=== PATIENT | female | born 1940 | race Caucasian/White ===

== ENCOUNTER 2016-06-05 19:21 | Inpatient (IN) | payer OTHER, MEDICARE ==
[~2016-06-05] VITALS: Ht 162.6 cm; Wt 76.7 kg
--- NOTE | 2016-06-05 19:33 | ED AMS/SEIZURE/WEAK/DIZZY ---
History of Present Illness General Chief Complaint: Dizziness Stated Complaint: BIBA, DIZZINESS, NAUSEA Source: patient, family, EMS Exam Limitations: clinical condition Vital Signs & Intake/Output Vital Signs & Intake/Output Vital Signs Date Time Temp Pulse Resp B/P B/P Pulse O2 O2 Flow FiO2 Mean Ox Delivery Rate 06/06 0039 96.8 60 18 169/75 92 Room Air 06/05 2259 96.9 58 18 194/79 95 Room Air 06/05 1934 97.5 61 18 128/58 94 Room Air ED Intake and Output 06/06 0000 06/05 1200 Intake Total 1000 Output Total Balance 1000 Intake, IV 1000 Patient 200 lb Weight Weight Estimated Measurement Method Allergies Coded Allergies: amoxicillin (PT UNSURE 06/05/16) Reconcile Medications Acetaminophen With Codeine (Acetaminophen-Cod #3 Tablet) 300 MG-30 MG TABLET 300 MG PO DAILY PAIN (Reported) Allopurinol 100 MG TABLET 100 MG PO DAILY GOUT (Reported) Amlodipine Besylate 10 MG TABLET 10 MG PO DAILY HEART (Reported) Aspirin (Francois Chewable Aspirin) 81 MG TAB.CHEW 81 MG PO DAILY HEART ( Reported) Carvedilol 12.5 MG TABLET 12.5 MG PO DAILY HEART (Reported) Clopidogrel Bisulfate (Clopidogrel) 75 MG TABLET 75 MG PO DAILY ANTIPLATELET (Reported) Fluoxetine HCl 20 MG CAPSULE 20 MG PO DAILY MENTAL HEALTH (Reported) Gabapentin 100 MG CAPSULE 100 MG PO DAILY DIABETES (Reported) Ipratropium/Albuterol Sulfate (Iprat-Albut 0.5-3(2.5) MG/3 Ml) 0.5 MG-3 MG (2.5 MG BASE)/3 ML AMPUL.NEB 0.5 MG INH PRN PRN BREATHING (Reported) Levothyroxine Sodium 112 MCG TABLET 112 MCG PO DAILY HYPOTHYROID (Reported) Mag Oxide/D3/Turmeric Rt Xt (Magnesium-Vit D3-Turmeric Cap) 500 MG-3,000 UNIT- 150 MG CAPSULE 500 MG PO DAILY SUPPLEMENT (Reported) Omeprazole 20 MG CAPSULE.DR 20 MG PO DAILY GERD (Reported) Pantoprazole Sodium 40 MG TABLET.DR 40 MG PO DAILY GERD (Reported) Pravastatin Sodium 40 MG TABLET 40 MG PO DAILY CHOLESTEROL (Reported) Saccharomyces Boulardii (Florastor) 250 MG CAPSULE 250 MG PO DAILY At The PoolS Shut Down (Reported) Sennosides (Senna) 8.6 MG TABLET 8.6 MG PO PRN CONSPTIPATION (Reported) Triage Nurses Notes Reviewed? yes Onset: Abrupt Duration: hour(s): (FEW) Timing: multiple episodes today Injury Environment: home Severity: moderate No Modifying Factors: none Associated Symptoms: ABDOMINAL PAIN, NASUEA, VOMITING HPI: This is a 75-year-old female with history of CVA, chronic kidney disease who presents by EMS with chief complaint of sudden onset of nausea vomiting diarrhea at home 2 hours ago. According to the daughter and son she had chicken for lunch and dinner. Nobody else in the house has been sick recently. Suddenly she became ill and had multiple rounds of diarrhea and vomiting. Patient and family deny any blood in the stools or in the vomitus. She denies any chest pain or feeling short of breath. She does have a pacemaker. All of her doctors are. [facility] but she patient did not want to go back to [facility]. Past History Travel History Traveled to [facility] past 21 day No Medical History Any Pertinent Medical History? see below for history Cardiovascular: CHF, PPM Renal: CKD Endocrine: diabetes Surgical History Surgical History: non-contributory Psychosocial History Tobacco Use: Never used ETOH Use: denies use Illicit Drug Use: denies illicit drug use Family History Hx Contributory? No Review of Systems Review of Systems Constitutional: Denies: chills, fever. EENTM: Reports: no symptoms. Respiratory: Denies: cough, short of breath. Cardiovascular: Denies: chest pain. GI: Reports: abdominal pain, diarrhea, nausea, vomiting. Genitourinary: Reports: no symptoms. Musculoskeletal: Reports: no symptoms. Skin: Reports: no symptoms. Neurological/Psychological: Reports: no symptoms. Hematologic/Endocrine: Denies: bruising, bleeding, polyuria, polydipsia. Immunologic/Allergic: Denies: splenectomy. All Other Systems: Reviewed and Negative Physical Exam Physical Exam General Appearance: well developed/nourished, alert, awake, anxious, mild distress, LEFT FACIAL DROOP Head: atraumatic, active bleeding Eyes: Bilateral: normal appearance, PERRL, pale conjunctivae. Ears, Nose, Throat: normal pharynx, hearing grossly normal Neck: normal inspection, supple, full range of motion Respiratory: normal breath sounds, chest non-tender, no respiratory distress Cardiovascular: regular rate/rhythm Peripheral Pulses: 2+ radial (R), 2+ radial (L) Gastrointestinal: soft, tenderness (LEFT FLANK, LLQ), NO REBOUND OR GUARDING Extremities: LEFT SIDED WEAKNESS Neurologic/Psych: awake, alert, oriented x 3 Skin: intact, normal color, warm/dry Core Measures ACS in differential dx? No CVA/TIA Diagnosis: No Severe Sepsis Present: No Septic Shock Present: No Progress Differential Diagnosis: dehydration, electrolyte imbalance, UTI/pyelo, GASTROENTERITIS, FOOD POISONING, DEHYDRATION, ACUTE KIDNEY INJURY,CHOLELITHIASIS RENAL COLIC Plan of Care: Orders Procedure Date/time Status Nothing by Mouth 06/06 B Active Patient Data 06/06 0024 Active Admit to inpatient 06/05 2325 Active Vital Signs 06/05 2325 Active Code Status 06/05 2325 Active Norris, Insertion/Removal/Asses 06/05 2241 Active CULTURE,URINE 06/05 2241 Active Straight Cath 06/05 2141 Active Intake & Output 06/05 2134 Active BLOOD CULTURE 06/05 2030 Active LACTIC ACID 06/05 2002 Complete URINALYSIS 06/05 1941 Complete TROPONIN LEVEL 06/05 1941 Complete LIPASE 06/05 1941 Complete COMPREHENSIVE METABOLIC PANEL 06/05 1941 Complete CBC WITHOUT DIFFERENTIAL 06/05 1941 Complete EKG 06/05 1941 Active Laboratory Tests 06/05/16 2303: Lactic Acid Cancelled 06/05/168: Urinalysis MOD H, Urine Color YEL, Urine Clarity CLEAR, Urine pH 7.0, Ur Specific [place] 1.020, Urine Protein >=300 H, Urine Ketones NEG, Urine Nitrite NEG, Urine Bilirubin NEG, Urine Urobilinogen 0.2, Ur Leukocyte Esterase NEG, Ur Microscopic SEDIMENT EXAMINED, Urine RBC 1-3, Urine WBC 5-10 H, Ur Epithelial Cells FEW, Micro UA Comment [place] H, Urine Hemoglobin TRACE-INTACT, Urine Glucose NEG 06/05/162010: Lactic Acid 0.6 L 06/05/162010: Anion Gap 12, Estimated GFR 31 L, BUN/Creatinine Ratio 22.5, Glucose 150 H, Calcium 9.6, Total Bilirubin 0.5, AST 20, ALT 23, Alkaline Phosphatase 79, Troponin I < 0.01, Total Protein 6.7, Albumin 3.6, Globulin 3.1, Albumin/ Globulin Ratio 1.2, Lipase 107, CBC w Diff NO MAN DIFF REQ, RBC 3.12 L, MCV 83.3, MCH 27.6, RDW 18.2 H, MPV 7.2 L, Gran % 79.5 H, Lymphocytes % 11.0 L, Monocytes % 2.8, Eosinophils % 6.3 H, Basophils % 0.4, Absolute Granulocytes 8.4 H, Absolute Lymphocytes 1.2, Absolute Monocytes 0.3, Absolute Eosinophils 0.7, Absolute Basophils 0, PUBS MCHC 33.1 Microbiology 06/05 2257 URINE ROUT: Urine Culture - RECD 06/05 2052 BLOOD: Blood Culture - RECD 06/06 1999 BLOOD: Blood Culture - RECD Diagnostic Imaging: Viewed by Me: CT Scan. Discussed w/RAD: CT Scan. Radiology Impression: PATIENT: SERENA AGUILERA PRESENT AGE: 75 PATIENT ACCOUNT NO: [id number] : 38 LOCATION: [facility] ORDERING PHYSICIAN: LANDEN MARTINEZ MD SERVICE DATE: 06/05/16 EXAM TYPE: CAT - CT ABD & PELVIS W/O IV CONTRAS EXAMINATION: CT ABDOMEN AND PELVIS WITHOUT CONTRAST CLINICAL INFORMATION: Pain, diarrhea, vomiting COMPARISON: None TECHNIQUE: Multidetector volumetric imaging was performed from the superior aspect of the liver through the pubic symphysis. Sagittal and coronal reformatted images were obtained on the technologist's workstation. DLP: 796 mGy-cm FINDINGS: Mild atelectasis or scarring at the bases. Upper abdomen There is mixed attenuation in the gallbladder. This may represent gallstones. Blood or other complex fluid would be a consideration. 2 calcifications in the region of the head of the pancreas. I cannot exclude common duct calculi. Largest is measuring 4 mm. The spleen is within normal limits. The adrenal glands are within normal limits. The pancreas shows no evidence for lesion. No free fluid is seen here. There is no adenopathy in the upper abdomen. The bowel pattern is felt to be within normal limits. The aorta is calcified but nondilated. Kidneys appear lobulated. This is a noncontrast study. Cannot exclude underlying lesion here. Bulbous appearance in the left d. Recommend ultrasound. I cannot exclude some mild hydronephrosis on the left in the left ureter is dilated. In the pelvis left ureter may lead up to a very small calculus at the level of the UVJ. Measures 2 mm. No free fluid in the deep pelvis. The sigmoid shows diverticulosis but no convincing evidence for diverticulitis. There is no bulky adenopathy here. IMPRESSION: Several subtle findings here. Mixed attenuation in the gallbladder and findings in the head of the pancreas which may suggest common duct stones. Correlation recommended clinically. Recommend ultrasound to further evaluate. MRCP may also be useful Prominent left ureter which may be lead up to a very small 2 mm calculus at the UVJ. There is also some mild fullness of left collecting system and pyelonephritis cannot be excluded and would be in the differential here. Bulbous appearance to the mid to inferior aspect of left kidney. Ultrasound would be recommended to exclude mass. The bowel pattern is nonobstructive. No free fluid. Diverticulosis but no evidence for diverticulitis here. DICTATED BY: LEILANI DAVIDSON MD DATE/TIME DICTATED:06/05/162109 CURING ROOM SUPERVISOR:KRISTAN DATE/TIME TRANSCRIBED:06/05/162109 CONFIDENTIAL, DO NOT COPY WITHOUT APPROPRIATE AUTHORIZATION. <Electronically signed in Other Vendor System> SIGNED BY: LEILANI DAVIDSON MD 06/05/162123 Initial ED EKG: ATRIAL PACED RHYTHM Departure Departure Time of Disposition: 2306 Disposition: STILL A PATIENT Condition: Stable Clinical Impression Primary Impression: Abdominal pain Secondary Impressions: Chronic anemia, CKD (chronic kidney disease), Nausea and vomiting Departure Forms: Customer Survey General Discharge Information Admission Note Spoke With: ENZO OVALLES MDWhitney Documentation of Exam: Documentation of any treatments & extenuating circumstances including Concerns Regarding Discharge (functional status, medication knowledge or non-compliance, living conditions, etc.) that warrant an admission rather than observation: [IV FLUIDS, ANTIEMETICS, IV PAIN CONTROL, UROLOGY CONSULTATION, F/U CULTURES, RUQ ULTRASOUND ]
--- NOTE | 2016-06-05 19:34 | NUR ---
PT BIBA FROM HOME. PT C/O DIZZINESS AND NAUSEA. 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 BEGAN TO HAVE DIARRHEA AND VOMIT X1 HOUR. C/O DIZZINESS AND FEELING COLD.
--- NOTE | 2016-06-05 19:40 | NUR ---
AT BEDSIDE FOR PT EVALUATION
--- NOTE | 2016-06-05 19:51 | NUR ---
PT CHANGED INTO GOWN, EKG IN PROGRESS BY JULISSA HODGE
--- NOTE | 2016-06-05 20:00 | NUR ---
IV EST #20 IN RAC BLOOD OBTAINED AND SENT TO LAB -CULTURES X2, SST,BLUE,LAV,AQUINO
[2016-06-05 20:26] LABS: ABSOLUTE BASOPHIL COUNT 0 /CUMM (0.0-0.2); ABSOLUTE EOSINOPHIL COUNT 0.7 /CUMM (0.0-0.7); ABSOLUTE GRANULOCYTE CT 8.4 /CUMM (1.4-6.5); ABSOLUTE LYMPH COUNT 1.2 /CUMM (1.2-3.4); ABSOLUTE MONOCYTE COUNT 0.3 /CUMM (0.10-0.60); BASOPHIL % 0.4 % (0.0-2.0); EOSINOPHIL % 6.3 % (0-5); GRANULOCYTE % 79.5 % (42.2-75.2); MEAN CORPUSCULAR HGB 27.6 PG (27.0-31.0); MEAN CORPUSCULAR HGB CONC 33.1 G/DL (33.0-37.0); MEAN CORPUSCULAR VOLUME 83.3 FL (81.0-99.0); MEAN PLATELET VOLUME 7.2 FL (7.4-10.4); PLATELET COUNT 307 /CUMM (130-400); RBC DISTRIBUTION WIDTH 18.2 % (11.5-14.5); RED BLOOD CELL CT 3.12 /CUMM (4.20-5.40); WHITE BLOOD CELL COUNT 10.5 /CUMM (4.8-10.8)
--- NOTE | 2016-06-05 21:04 | NUR ---
PT TO AND FROM CAT SCAN VIA STRETCHER
--- NOTE | 2016-06-05 21:24 | CT SCAN REPORT ---
EXAMINATION: CT ABDOMEN AND PELVIS WITHOUT CONTRAST CLINICAL INFORMATION: Pain, diarrhea, vomiting COMPARISON: None TECHNIQUE: Multidetector volumetric imaging was performed from the superior aspect of the liver through the pubic symphysis. Sagittal and coronal reformatted images were obtained on the technologist's workstation. DLP: 796 mGy-cm FINDINGS: Mild atelectasis or scarring at the bases. Upper abdomen There is mixed attenuation in the gallbladder. This may represent gallstones. Blood or other complex fluid would be a consideration. 2 calcifications in the region of the head of the pancreas. I cannot exclude common duct calculi. Largest is measuring 4 mm. The spleen is within normal limits. The adrenal glands are within normal limits. The pancreas shows no evidence for lesion. No free fluid is seen here. There is no adenopathy in the upper abdomen. The bowel pattern is felt to be within normal limits. The aorta is calcified but nondilated. Kidneys appear lobulated. This is a noncontrast study. Cannot exclude underlying lesion here. Bulbous appearance in the left d. Recommend ultrasound. I cannot exclude some mild hydronephrosis on the left in the left ureter is dilated. In the pelvis left ureter may lead up to a very small calculus at the level of the UVJ. Measures 2 mm. No free fluid in the deep pelvis. The sigmoid shows diverticulosis but no convincing evidence for diverticulitis. There is no bulky adenopathy here. IMPRESSION: Several subtle findings here. Mixed attenuation in the gallbladder and findings in the head of the pancreas which may suggest common duct stones. Correlation recommended clinically. Recommend ultrasound to further evaluate. MRCP may also be useful Prominent left ureter which may be lead up to a very small 2 mm calculus at the UVJ. There is also some mild fullness of left collecting system and pyelonephritis cannot be excluded and would be in the differential here. Bulbous appearance to the mid to inferior aspect of left kidney. Ultrasound would be recommended to exclude mass. The bowel pattern is nonobstructive. No free fluid. Diverticulosis but no evidence for diverticulitis here.
[2016-06-05] MEDS ORDERED: PANTOPRAZOLE SO40 M1 PO (21:36)
[2016-06-05] MEDS ORDERED: ALLOPURINOL100 M1 PO (21:37)
[2016-06-05] MEDS ORDERED: LEVOTHYROXINE112 MCG PO (21:38)
[2016-06-05] MEDS ORDERED: AMLODIPINE BESY10 M1 PO (21:38)
[2016-06-05] MEDS ORDERED: PRAVASTATIN SOD40 M2 PO (21:38)
[2016-06-05] MEDS ORDERED: GABAPENTIN100 M2 PO (21:39)
[2016-06-05] MEDS ORDERED: CARVEDILOL12.5 M1 PO (21:39)
[2016-06-05] MEDS ORDERED: CLOPIDOGREL75 M1 PO (21:40)
[2016-06-05] MEDS ORDERED: OMEPRAZOLE20 M2 PO (21:40)
[2016-06-05] MEDS ORDERED: FLUOXETINE HCL20 M2 PO (21:40)
[2016-06-05] MEDS ORDERED: ACETAMINOPHEN-1 EAC3 PO (21:42)
[2016-06-05] MEDS ORDERED: IPRAT-ALBUT 0.5-3 ML INH (21:46)
[2016-06-05] MEDS ORDERED: MAGNESIUM-VIT1 EACH PO (21:46)
[2016-06-05] MEDS ORDERED: SENNA8.6 M3 PO (21:47)
[2016-06-05] MEDS ORDERED: FLORASTOR250 M1 PO (21:47)
[2016-06-05] MEDS ORDERED: BAYER CHEWABLE81 MG PO (21:47)
--- NOTE | 2016-06-05 21:53 | NUR ---
PT AND PT FAMILY ADVISED AND EDUCATED ABOUT NEED FOR URINE SAMPLE. PT FAMILY STATED THAT THEY WILL REMIND PT ABOUT NEED FOR SAMPLE. MADE AWARE
--- NOTE | 2016-06-05 22:58 | NUR ---
URINE TRIO SENT TO LAB.
--- NOTE | 2016-06-05 23:01 | NUR ---
PT MEDICATED WITH 10MG REGLAN FOR NAUSEA RECIO CATHETER PLACED, 400ML OF CLEAR YELLOW URINE IN BAG. URINE TRIO OBTAINED AND SENT TO LAB BY JULISSA HODGE
--- NOTE | 2016-06-05 23:22 | NUR ---
ASSUMED CARE OF PT PER VERONA BEE. PT RESTING IN RM WITH RR, WILL CONTINUE TO MONITOR
--- NOTE | 2016-06-05 23:48 | NUR ---
PT VOMITING IN , THIS RN MADE DR CORTÉS AWARE.
--- NOTE | 2016-06-05 23:55 | NUR ---
PT MEDICATED WITH 12.5MG PHENERGEN IV PER EMAR INFUSING OVER 30MINS.
--- NOTE | 2016-06-06 00:04 | NUR ---
PT REPOSITIONED IN BED SITTING STRAIGHT UP BY THIS RN SO PT CAN VOMIT IF NEEDED.
--- NOTE | 2016-06-06 01:27 | NUR ---
PT SLEEPING WITH RR, PT PLACED ON MONITOR IN RM, THIS RN WILL CONTINUE TO MONITOR
--- NOTE | 2016-06-06 01:55 | History & Physical ---
JEFFERY VERDIN 06/06/16 0154: General Information and HPI MD Statement: I have seen and personally examined SERENA AGUILERA and documented this H&P. The patient is a 75 year old F who presented with a patient stated chief complaint of [NAUSEA/VOMITING/DIARRHEA]. Source of Information: patient Exam Limitations: unable to give history, not alert/orientated, poor historian History of Present Illness: Mrs. Aguilera is a 75 year old female with significant past medical history of diabetes, hypertension, hyperlipidemia, chronic kidney disease [follows up with Dr. 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 It should be noted that information was obtained from her son as the patient was unable to provide a significant detailed history. Per her son, the patient's nausea, vomiting and diarrhea started approximately 3:30 PM, and continued until the time they came to the hospital. He states that she had been eating chicken, which they attributed the symptoms to, however upon further investigation it turns out that the whole family had eaten the same food and did not develop any symptoms. Per the son, he states that the patient did not complain of any other symptoms, but he did mention that when the patient first came to the emergency department she did have left sided abdominal discomfort when he ED provider examined her. A detailed review of systems could not be conducted. She does live at home with her along with a 24-hour live-in nurse. She does have an allergy to penicillin, 40 years ago, not sure reaction. Vitals on admission, temperature 97.5, heart rate 61, respiratory rate 18, 128/ 58, 84% on room air. Physical exam: Age-appropriate appearing female lying comfortably in bed in no acute distress. HEENT exam positive for dry/pale mucous membranes. Lung exam benign. Heart exam regular rate and rhythm without any murmurs rubs or gallops. Abdominal exam bowel sounds however patient did admit to tenderness diffusely. Lower extremity exam negative for any swelling or significant erythema. Significant labs, H&H 8.6/26, white blood cell count 10.5, platelets 307. BUNs/ creatinine 36/1.6, blood sugar 150. Urinalysis showed 1+ proteinuria with 5-[address] showed several subtle findings including mixed attenuation in the gallbladder and findings in the head of the pancreas which may suggest common duct stones, as well as a prominent left ureter which may be lead up to a very small 2 mm calculus at the UVJ. There is also some mild fullness of left collecting system. Allergies/Medications Allergies: Coded Allergies: amoxicillin (PT UNSURE 06/05/16) Home Med list Acetaminophen With Codeine (Acetaminophen-Cod #3 Tablet) 300 MG-30 MG TABLET 300 MG PO DAILY PAIN (Reported) Allopurinol 100 MG TABLET 100 MG PO DAILY GOUT (Reported) Amlodipine Besylate 10 MG TABLET 10 MG PO DAILY HEART (Reported) Aspirin (Francois Chewable Aspirin) 81 MG TAB.CHEW 81 MG PO DAILY HEART ( Reported) Carvedilol 12.5 MG TABLET 12.5 MG PO BID BLOOD PRESSURE (Reported) Clopidogrel Bisulfate (Clopidogrel) 75 MG TABLET 75 MG PO DAILY ANTIPLATELET (Reported) Fluoxetine HCl 20 MG CAPSULE 20 MG PO DAILY MENTAL HEALTH (Reported) Gabapentin 100 MG CAPSULE 100 MG PO DAILY DIABETES (Reported) Ipratropium/Albuterol Sulfate (Iprat-Albut 0.5-3(2.5) MG/3 Ml) 0.5 MG-3 MG (2.5 MG BASE)/3 ML AMPUL.NEB 0.5 MG INH PRN PRN BREATHING (Reported) Levothyroxine Sodium 112 MCG TABLET 112 MCG PO DAILY HYPOTHYROID (Reported) Mag Oxide/D3/Turmeric Rt Xt (Magnesium-Vit D3-Turmeric Cap) 500 MG-3,000 UNIT- 150 MG CAPSULE 500 MG PO DAILY SUPPLEMENT (Reported) Omeprazole 20 MG CAPSULE.DR 20 MG PO DAILY GERD (Reported) Pantoprazole Sodium 40 MG TABLET.DR 40 MG PO DAILY GERD (Reported) Pravastatin Sodium 40 MG TABLET 40 MG PO DAILY CHOLESTEROL (Reported) Saccharomyces Boulardii (Florastor) 250 MG CAPSULE 250 MG PO DAILY Loud Games (Reported) Sennosides (Senna) 8.6 MG TABLET 8.6 MG PO PRN CONSPTIPATION (Reported) Compliance With Home Meds: GOOD Past History Travel History Traveled to [place] past 21 day No Medical History Cardiovascular: symptomatic bradycardia s/p PPM Renal: CKD Endocrine: diabetes Surgical History Surgical History: non-contributory Past Family/Social History Family History Relations & Conditions if any Relation not specified for: *No pertinent family history Psychosocial History ETOH Use: denies use Illicit Drug Use: denies illicit drug use Review of Systems Review of Systems Constitutional: Reports: see HPI. Cardiovascular: Denies: chest pain, edema, orthopena, palpitations. Respiratory: Denies: cough, hemoptysis, orthopnea, short of breath. GI: Reports: abdominal pain, diarrhea, nausea, vomiting. Denies: bloating, constipation, bloody stool, changes in stool. Exam & Diagnostic Data Last 24 Hrs of Vital Signs/I&O Vital Signs Date Time Temp Pulse Resp B/P B/P Pulse O2 O2 Flow FiO2 Mean Ox Delivery Rate 06/06 0039 96.8 60 18 169/75 92 Room Air 06/05 2259 96.9 58 18 194/79 95 Room Air 06/05 1934 97.5 61 18 128/58 94 Room Air Intake & Output 06/06 0800 06/06 0000 06/05 1600 Intake Total 1000 Output Total Balance 1000 Intake, IV 1000 Patient 90.718 kg Weight Weight Estimated Measurement Method Physical Exam General Appearance Alert (see ), not oriented Skin Temp/Moisture Exam: Warm/Dry HEENT Atraumatic, dry/pale membranes Neck Supple, No JVD Cardiovascular Regular Rate, Normal S1, Normal S2, No Murmurs Lungs Clear to Auscultation, Normal Air Movement Abdomen Normal Bowel Sounds, Soft, diffuse tenderness Extremities No Cyanosis, No Edema, No Tenderness/Swelling Last 24 Hrs of Labs/Yony: Laboratory Tests 06/05/162302: Lactic Acid Cancelled 06/05/162257: Urinalysis MOD H, Urine Color YEL, Urine Clarity CLEAR, Urine pH 7.0, Ur Specific [place] 1.020, Urine Protein >=300 H, Urine Ketones NEG, Urine Nitrite NEG, Urine Bilirubin NEG, Urine Urobilinogen 0.2, Ur Leukocyte Esterase NEG, Ur Microscopic SEDIMENT EXAMINED, Urine RBC 1-3, Urine WBC 5-10 H, Ur Epithelial Cells FEW, Micro UA Comment [place] YEAST H, Urine Hemoglobin TRACE-INTACT, Urine Glucose NEG 06/05/162010: Lactic Acid 0.6 L 06/05/162010: Anion Gap 12, Estimated GFR 31 L, BUN/Creatinine Ratio 22.5, Glucose 150 H, Calcium 9.6, Total Bilirubin 0.5, AST 20, ALT 23, Alkaline Phosphatase 79, Troponin I < 0.01, Total Protein 6.7, Albumin 3.6, Globulin 3.1, Albumin/ Globulin Ratio 1.2, Lipase 107, CBC w Diff NO MAN DIFF REQ, RBC 3.12 L, MCV 83.3, MCH 27.6, RDW 18.2 H, MPV 7.2 L, Gran % 79.5 H, Lymphocytes % 11.0 L, Monocytes % 2.8, Eosinophils % 6.3 H, Basophils % 0.4, Absolute Granulocytes 8.4 H, Absolute Lymphocytes 1.2, Absolute Monocytes 0.3, Absolute Eosinophils 0.7, Absolute Basophils 0, PUBS MCHC 33.1 Microbiology 06/05 2257 URINE ROUT: Urine Culture - RECD 06/05 2052 BLOOD: Blood Culture - RECD 06/06 1999 BLOOD: Blood Culture - RECD Diagnostic Data Other Results SERVICE DATE: 06/05/16-2031 EXAM TYPE: CAT - CT ABD & PELVIS W/O IV CONTRAS EXAMINATION: CT ABDOMEN AND PELVIS WITHOUT CONTRAST CLINICAL INFORMATION: Pain, diarrhea, vomiting COMPARISON: None TECHNIQUE: Multidetector volumetric imaging was performed from the superior aspect of the liver through the pubic symphysis. Sagittal and coronal reformatted images were obtained on the technologist's workstation. DLP: 796 mGy-cm FINDINGS: Mild atelectasis or scarring at the bases. Upper abdomen There is mixed attenuation in the gallbladder. This may represent gallstones. Blood or other complex fluid would be a consideration. 2 calcifications in the region of the head of the pancreas. I cannot exclude common duct calculi. Largest is measuring 4 mm. The spleen is within normal limits. The adrenal glands are within normal limits. The pancreas shows no evidence for lesion. No free fluid is seen here. There is no adenopathy in the upper abdomen. The bowel pattern is felt to be within normal limits. The aorta is calcified but nondilated. Kidneys appear lobulated. This is a noncontrast study. Cannot exclude underlying lesion here. Bulbous appearance in the left d. Recommend ultrasound. I cannot exclude some mild hydronephrosis on the left in the left ureter is dilated. In the pelvis left ureter may lead up to a very small calculus at the level of the UVJ. Measures 2 mm. No free fluid in the deep pelvis. The sigmoid shows diverticulosis but no convincing evidence for diverticulitis. There is no bulky adenopathy here. IMPRESSION: Several subtle findings here. Mixed attenuation in the gallbladder and findings in the head of the pancreas which may suggest common duct stones. Correlation recommended clinically. Recommend ultrasound to further evaluate. MRCP may also be useful Prominent left ureter which may be lead up to a very small 2 mm calculus at the UVJ. There is also some mild fullness of left collecting system and pyelonephritis cannot be excluded and would be in the differential here. Bulbous appearance to the mid to inferior aspect of left kidney. Ultrasound would be recommended to exclude mass. The bowel pattern is nonobstructive. No free fluid. Diverticulosis but no evidence for diverticulitis here. Assessment/Plan Assessment: Mrs. Aguilera is a 75 year old female with significant past medical history of diabetes, hypertension, hyperlipidemia, chronic kidney disease [follows up with Dr. 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 Significant labs, H&H 8.6/26, white blood cell count 10.5, platelets 307. BUNs/ creatinine 36/1.6, blood sugar 150. Urinalysis showed 1+ proteinuria with 5-[address] showed several subtle findings including mixed attenuation in the gallbladder and findings in the head of the pancreas which may suggest common duct stones, as well as a prominent left ureter which may be lead up to a very small 2 mm calculus at the UVJ. There is also some mild fullness of left collecting system. Problem List/Assessment and Plan Nausea/vomitting/diarrhea * Admit the patient to for rehydration with IV fluids and anti-emetics * We'll give normal saline at 75 mL per hour 2 bags and 4 mg of IV Zofran every 4-6 hours as needed * Reassess volume status in the morning and consider transitioning to by mouth Zofran * The patient's family did eat the same food as the patient so that goes against gastroenteritis, however the patient is diabetic and therefore immunocompromised. Also given the acuity of the process, she may indeed have gastroenteritis secondary to an infectious process. * Nausea, vomiting and abdominal pain associated with diarrhea may be secondary to a biliary process however her liver enzymes were within normal limits. CT scan did show questionable gallstones, if the patient does not improve tomorrow, consider abdominal ultrasound. Consider complete abdominal ultrasound also assess her kidneys in addition to her biliary tree and liver. * Please also consider pancultures and and ABx to cover gram negatives and anaerobes if she spikes a fever/doesnt improve. HTN/CVA * continue home meds, carvedilol 12.5 mg twice a day, amlodipine 10mg daily, aspirin 81 mg, clopidogrel 75 mg, and pravastatin 40 daily. DM * Patient is not on any antidiabetic medication however we will place her on a NovoLog sliding scale and check fingersticks 3 times a day before meals and at bedtime CKD * BUNs/creatinine 36/1.6. We do not have a baseline BUN/creatinine however we will recheck BUN/creatinine after hydration tomorrow. Per the son the patient does have chronic kidney disease with approximately 25% renal function. Hypothyroidism * Continue synthroid 112 mcg daily. DNR/DNI heart healthy diet heparin for dvt ppx pain pathway As Ranked By This Provider Problem List: 1. Nausea and vomiting 2. CKD (chronic kidney disease) 3. Abdominal pain 4. Chronic anemia Core Measures/Miscellaneous Acute Coronary Syndrome ACS Diagnosis: No Cerebrovascular Accident CVA/TIA Diagnosis: No Congestive Heart Failure CHF Diagnosis: No Venous Thromboembolism VTE Risk Factors: Acute medical illness, Age > 40 [facility] prophylaxis d/t: No contraindications No VTE Pharm Prophylaxis d/t: No contraindications VTE Diagnosis: No VTE Type: NONE VTE Confirmed by (Test): NONE Severe Sepsis Severe Sepsis Present: No Septic Shock Septic Shock Present: No Miscellaneous Documentation Attending Case Discussed With: ENZO OVALLES MDWhitney Primary Care Physician: FLOR[place] MEMBRENO MD Patient sees these Specialists Dr. Mina Level of Patient Care: General Medicine ENZO OVALLES MD 06/06/16 0419: Attending Review Statement Attending Statement Attending Statement: examined this patient, discuss w/resident/PA/BAR ROLLER, agreed w/resident/PA/BAR ROLLER Attending Assessment/Plan: 75 yo morbidly obese F with h/o CVA with left sided residual deficit, facial droop and speech deficit, CKD, DM, HTN, chronic anemia, CHF, recurrent UTI, sinus bradycardia s/p PPM, is brought in for sudden onset nausea, vomiting and noonbloody diarrhea after having consumed chicken, which other members in the family ate but did not get sick. History as obtained from patient's son. Patient had reported some mid-to-left abdominal discomfort to ER physician. On our evaluation, patient was unable to pin point abdominal pain. Patient mainly follows at [facility]. VSS. Exam: AAO, dry mucous membranes, pallor+. Lungs clear. Abd soft, not distended, diffuse tenderness, BS+. Mccurdy's sign negative Back: no CVA tenderness. Labs: H/H 8.6/26 (no baseline), BUN 36, creat 1.6 (no baseline), trop neg. LFTs normal, lipase normal. UA proteinuria, WBC 5-10, otherwise clear. EKG: atrial paced. CT abd/pelvis: Possible gallstones, CBD stones noted around head of pancreas. Prominent left ureter with 2 mm calculus, mild fullness of left collecting system, cannot exclude pyelonephritis. Nonobstructive bowel gas pattern. 1. Intractable nausea, vomiting and diarrhea likely 2/2 acute viral or bacterial gastroenteritis. No evidence of bowel obstruction. Cholelithiasis/ biliary colic is a possibility, no evidence of cholangitis, pancreatitis or cholecystitis. GM admit, NPO, IV fluids, anti-emetics, obtain RUQ ultrasound in AM. Obtain swallow eval in AM. If she spikes a fever or develops leukocytosis, will consider empiric antibiotic coverage for GI organisms. If diarrhea persists, consider stool studies, Cdiff. CT shows evidence of mild fullness in left collecting system ?pyelonephritis, however urinalysis is clear and patient has no urinary symptoms. Not convinced that this is a UTI or pyelonephritis. 2. Renal failure acute vs. Chronic. IV hydration and recheck renal functions in AM. 3. Anemia of chronic disease. Guaiac all stools, check iron studies, TSH, B12, folic acid. Obtain records from [facility]. DVT ppx Hep SC. DNR/I. folic acid. Obtain records from [facility]. DVT ppx Hep SC. DNR/I.
--- NOTE | 2016-06-06 02:36 | NUR ---
PT HAS NS INFUSING @ 75ML/HR PER EMAR, PT RESTING WITH RR, WILL CONTINUE TO MONITOR
--- NOTE | 2016-06-06 03:46 | NUR ---
PT SLEEPING WITH RR, HR NML ON MONITOR, WILL CONTINUE TO MONITOR. PT HAS NOT HAD ANY FURTHER EPISODES OF EMESIS
--- NOTE | 2016-06-06 04:53 | NUR ---
PT SLEEPING WITH RR, BILATERAL CHEST RISE AND FALL NOTED. WILL CONTINUE TO MONITOR
--- NOTE | 2016-06-06 05:22 | Admission Certification ---
Admission Certification Certification Statement - As attending physician, I certify that at the time of - admission, based on clinical presentation, severity of - symptoms, need for further diagnostic testing and - therapeutic interventions, and risk of adverse outcomes - without in-hospital treatment, in my clinical assessment, - this patient requires an acute hospital stay for a minimum - of two nights or longer. I have also considered psychsocial - factors such as support system, advanced age, financial - issues, cognitive issues, and failed out-patient treatments, - past re-admission history, safety of patient, and lack of - compliance as applicable. Specific rationale supporting this admission is: Intractable nausea and vomiting.
--- NOTE | 2016-06-06 05:54 | NUR ---
PT AWAKE, PT STATES NO LONGER FEELING NAUSEOUS AND PT INFORMED BREAKFAST WILL BE HERE SOON.
--- NOTE | 2016-06-06 06:27 | NUR ---
PT MEDICATED WITH 5000UNIT HEPARIN BOLUS IN RIGHT ABD PER EMAR.
--- NOTE | 2016-06-06 06:34 | NUR ---
PT MEDICATED WITH 20MG PRILOSEC PO AND 0.112MG SYNTHROID PO PER EMAR.
--- NOTE | 2016-06-06 07:56 | PN- Housestaff ---
NATASHA UP 06/06/16 0756: Subjective Follow-up For: Nausea vomiting and diarrhea Complaints: tiredness Subjective: Patient was seen and examined this morning. She was lying comfortably on bed but admits to have weakness and she feels somewhat tired. She denied any loose bowel movement or nausea or vomiting past few hours. She had 3 diarrheal stools overnight. She is nothing by mouth for pending swallow evaluation. She remained afebrile with temperature 96.6, pulse 61, respiratory rate 18, blood pressure 172/72 and she is saturating 95% on room air. WBC count is normal at 10.5 and her hemoglobin is 8.6 with hematocrit of 26 and platelet count of 307. She denied severe abdominal pain but admits that she has some discomfort on the right upper quadrant. She also admits that sometimes she has mild burning micturition. Review of Systems Constitutional: Reports: weakness. Denies: chills, diaphoresis. EENTM: Denies: blurred vision, double vision. Cardiovascular: Denies: chest pain, edema, orthopena. Respiratory: Denies: cough, hemoptysis. Gastrointestinal: Reports: abdominal pain, distention. Genitourinary: Reports: dysuria. Denies: frequency, hematuria. Objective Last 24 Hrs of Vital Signs/I&O Vital Signs Date Time Temp Pulse Resp B/P B/P Pulse O2 O2 Flow FiO2 Mean Ox Delivery Rate 06/06 0627 96.6 61 18 172/72 95 Room Air 06/06 0039 96.8 60 18 169/75 92 Room Air 06/05 2259 96.9 58 18 194/79 95 Room Air 06/05 1934 97.5 61 18 128/58 94 Room Air Intake & Output 06/06 1600 06/06 0800 06/06 0000 Intake Total 1000 Output Total 700 Balance -700 1000 Intake, IV 1000 Output, Urine 700 Patient 200 lb Weight Weight Estimated Measurement Method Physical Exam General Appearance: Alert, Oriented X3, Cooperative, No Acute Distress Skin: No Significant Lesion Cardiovascular: Normal S1, Normal S2, No Murmurs Lungs: Normal Air Movement Abdomen: Soft, slight right upper quadrant tenderness Neurological: left-sided residual upper and lower extremity weakness after CVA Extremities: trace edema Current Medications: Current Medications Sig/Lakshmi Start time Last Medication Dose Route Stop Time Status Admin Acetaminophen 650 MG Q6P PRN 06/06 0200 AC PO Acetaminophen 1,000 MG Q6P PRN 06/06 0200 AC IV Amlodipine Besylate 10 MG DAILY 06/06 1000 AC PO Aspirin 81 MG DAILY 06/06 1000 AC PO Carvedilol 12.5 MG BID 06/06 1000 AC PO Clopidogrel Bisulfate 75 MG DAILY 06/06 1000 AC PO Fluoxetine HCl 20 MG DAILY 06/06 1000 AC PO Gabapentin 100 MG DAILY 06/06 1000 AC PO Heparin Sodium 5,000 UNIT Q8 06/06 0600 AC 06/06 (Porcine) SC 0627 Insulin Aspart 0 TIDAC 06/06 0800 AC SC Levothyroxine Sodium 0.112 MG DAILY AC 06/06 0700 AC 06/06 PO 0634 Magnesium Oxide 400 MG DAILY 06/06 1000 AC PO Metoclopramide HCl 0 .STK-MED ONE 06/05 2246 DC .ROUTE Metoclopramide HCl 10 MG ONCE ONE 06/05 2244 DC 06/05 IV 06/05 2245 230 Morphine Sulfate 2 MG ONCE ONE 06/05 2044 DC 06/05 IV 06/05 Morphine Sulfate 0 .STK-MED ONE 06/05 2038 DC .ROUTE Omeprazole 20 MG DAILY AC 06/06 0700 AC 06/06 PO 0634 Ondansetron HCl 4 MG Q6P PRN 06/06 0200 AC IV Ondansetron HCl 0 .STK-MED ONE 06/05 2038 DC .ROUTE Ondansetron HCl 4 MG ONCE ONE 06/06 1999 DC 06/05 IV 06/05 2000 204 Oxycodone/ 1 TAB Q6P PRN 06/06 0200 AC Acetaminophen PO Pravastatin Sodium 40 MG 1700 06/06 1700 AC PO Promethazine HCl 0 .STK-MED ONE 06/05 2352 DC .ROUTE Promethazine HCl 12.5 MG ONCE ONE 06/05 2345 DC 06/05 IV 06/05 2345 2355 Senna/Docusate Sodium 2 TAB DAILY NEEDED PRN 06/06 0145 AC PO Sodium Chloride 1,000 ML Q13H 06/06 0200 AC 06/06 IV 06/07 0359 0235 Sodium Chloride 500 ML BOLUS ONE 06/05 1945 DC 06/05 IV 06/06 2043 204 Last 24 Hrs of Lab/Yony Results Last 24 Hrs of Labs/Mics: Laboratory Tests 06/05/162302: Lactic Acid Cancelled 06/05/162257: Urinalysis MOD H, Urine Color YEL, Urine Clarity CLEAR, Urine pH 7.0, Ur Specific Wallace 1.020, Urine Protein >=300 H, Urine Ketones NEG, Urine Nitrite NEG, Urine Bilirubin NEG, Urine Urobilinogen 0.2, Ur Leukocyte Esterase NEG, Ur Microscopic SEDIMENT EXAMINED, Urine RBC 1-3, Urine WBC 5-10 H, Ur Epithelial Cells FEW, Micro UA Comment BUDDING YEAST H, Urine Hemoglobin TRACE-INTACT, Urine Glucose NEG 06/05/162010: Lactic Acid 0.6 L 06/05/162010: Anion Gap 12, Estimated GFR 31 L, BUN/Creatinine Ratio 22.5, Glucose 150 H, Calcium 9.6, Iron 50, Total Bilirubin 0.5, AST 20, ALT 23, Alkaline Phosphatase 79, Troponin I < 0.01, Total Protein 6.7, Albumin 3.6, Globulin 3.1, Albumin/ Globulin Ratio 1.2, Lipase 107, Vitamin B12 418, Folate 9.4, TSH 0.599, CBC w Diff NO MAN DIFF REQ, RBC 3.12 L, MCV 83.3, MCH 27.6, RDW 18.2 H, MPV 7.2 L, Gran % 79.5 H, Lymphocytes % 11.0 L, Monocytes % 2.8, Eosinophils % 6.3 H, Basophils % 0.4, Absolute Granulocytes 8.4 H, Absolute Lymphocytes 1.2, Absolute Monocytes 0.3, Absolute Eosinophils 0.7, Absolute Basophils 0, PUBS MCHC 33.1 Microbiology 06/05 2257 URINE ROUT: Urine Culture - RES 06/05 2052 BLOOD: Blood Culture - RECD 06/06 1999 BLOOD: Blood Culture - RECD Assessment/Plan Assessment: Mrs. Snowden is a 75 year old female with significant past medical history of diabetes, hypertension, hyperlipidemia, chronic kidney disease [follows up with Dr. 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 Significant labs, H&H 8.08/05, white blood cell count 10.5, platelets 307. BUNs/ creatinine 36/1.6, blood sugar 150. Urinalysis showed 1+ proteinuria with 5-[address] showed several subtle findings including mixed attenuation in the gallbladder and findings in the head of the pancreas which may suggest common duct stones, as well as a prominent left ureter which may be lead up to a very small 2 mm calculus at the UVJ. There is also some mild fullness of left collecting system. Problem List/Assessment and Plan Nausea/vomitting/diarrhea * Admit the patient to for rehydration with IV fluids and anti-emetics * We'll continue normal saline at 75 mL per hour 2 bags and 4 mg of IV Zofran every 4-6 hours as needed * Nausea, vomiting and abdominal pain associated with diarrhea most likely gastro-enteritis viral in origin but may be secondary to a biliary process however her liver enzymes were within normal limits. CT scan did show questionable gallstones, we will do right upper quadrant abdominal ultrasound to look for biliary tract pathology and also for any evidence of pyelonephritis/ nephrolithiasis * On abdominal ultrasound today a large lobulated 5.0 into 2.18-4.1 cm mixed echogenicity but primarily hyperechoic Mac was seen that was arising from posterior wall of gallbladder. Which was highly suspicious for malignancy/ neoplasm. GI consultation was requested and also patient and family was updated * If patient spikes fever or develop leukocytosis at any point we will cover her with antibiotics for gastroenterology and we will consider sending C. difficile if diarrhea persists * HTN/CVA * continue home meds, carvedilol 12.5 mg twice a day, amlodipine 10mg daily, aspirin 81 mg, clopidogrel 75 mg, and pravastatin 40 daily. DM * Patient is not on any antidiabetic medication however we will place her on a NovoLog sliding scale and check fingersticks 3 times a day before meals and at bedtime CKD * BUNs/creatinine 36/1.6. We do not have a baseline BUN/creatinine however we will recheck BUN/creatinine after hydration tomorrow. Per the son the patient does have chronic kidney disease with approximately 25% renal function. * I called her PCP Dr. Jose MEMBRENO ask about patient's previous creatinine and he told me that the last BEP from May showed that her creatinine was 2.2, BUNs 34, GFR 23. Her hemoglobin A1c was 6.2. Patient had a recent ultrasound that was especially for kidney/neurogenic bladder and gallbladder sludge was noted. Hypothyroidism * Continue synthroid 112 mcg daily. DNR/DNI heart healthy diet heparin for dvt ppx pain pathway Problem List: 1. Abdominal pain 2. Nausea and vomiting 3. Chronic anemia Pain Ratin Pain Location: Right upper quadrant Pain Goal: Remain pain free Pain Plan: Tylenol Tomorrow's Labs & Rationales: CBC and basic electrolyte panel NAN BENITEZ MD 06/06/16 1228: Attending MD Review Statement Attending Statement Attending MD Statement: examined this patient, discuss w/resident/PA/[employer]ANT OPERATOR, agreed w/resident/PA/[employer]ANT OPERATOR, reviewed EMR data (avail), discussed with nursing, reviewed images, amended to note Attending Assessment/Plan: Patient seen and examined, slightly better this morning. The nausea, vomiting and diarrhea has improved. Patient had an abdominal ultrasound done and the results are pending. Vital Signs Date Time Temp Pulse Resp B/P B/P Pulse O2 O2 Flow FiO2 Mean Ox Delivery Rate 06/06 1025 97.0 72 19 168/70 95 Room Air 06/06 0921 61 138/56 06/06 0920 61 138/56 06/06 0800 61 138/56 06/06 0627 96.6 61 18 172/72 95 Room Air 06/06 0039 96.8 60 18 169/75 92 Room Air 06/05 2259 96.9 58 18 194/79 95 Room Air 06/05 1934 97.5 61 18 128/58 94 Room Air on exam; awake, nad. cv; s1,s2, rrr resp; clear b/l abd; soft, nt, bs+ ext; trace edema. Laboratory Tests 06/06 06/05 06/05 1218 2303 2258 Chemistry Sodium Pending Potassium Pending Chloride Pending Carbon Dioxide Pending Anion Gap Pending BUN Pending Creatinine Pending BUN/Creatinine Ratio Pending Lactic Acid Cancelled Urines Urinalysis MOD H Urine Color (YEL,AMB,STR) YEL Urine Clarity (CLEAR) CLEAR Urine pH (5.0 - 8.0) 7.0 Ur Specific Wallace (1.001 - 1.035) 1.020 Urine Protein (NEG,<30 MG/DL) >=300 H Urine Ketones (NEG) NEG Urine Nitrite (NEG) NEG Urine Bilirubin (NEG) NEG Urine Urobilinogen (0.1 - 1.0 EU/dl) 0.2 Ur Leukocyte Esterase (NEG) NEG Ur Microscopic SEDIMENT EXAMINED Urine RBC (0 - 5 /HPF) 1-3 Urine WBC (0 - 2 /HPF) 5-10 H Ur Epithelial Cells (NONE,FEW) FEW Micro UA Comment BUDDING YEAST H Urine Hemoglobin (NEG) TRACE-INTACT Urine Glucose (N MG/DL) NEG 06/05 Chemistry Sodium (137 - 145 mmol/L) 136 L Potassium (3.5 - 5.1 mmol/L) 5.1 Chloride (98 - 107 mmol/L) 100 Carbon Dioxide (22 - 30 mmol/L) 25 Anion Gap (5 - 16) 12 BUN (7 - 17 mg/dL) 36 H Creatinine (0.5 - 1.0 mg/dL) 1.6 H Estimated GFR (>60 ml/min) 31 L BUN/Creatinine Ratio (7 - 25 %) 22.5 Glucose (65 - 99 mg/dL) 150 H Lactic Acid (0.7 - 2.1 mmol/L) 0.6 L Calcium (8.4 - 10.2 mg/dL) 9.6 Iron (37 - 170 ug/dL) 50 Ferritin (11.1 - 264 ng/mL) 20.0 Total Bilirubin (0.2 - 1.3 mg/dL) 0.5 AST (14 - 36 U/L) 20 ALT (9 - 52 U/L) 23 Alkaline Phosphatase (<127 U/L) 79 Troponin I (< 0.11 ng/ml) < 0.01 Total Protein (6.3 - 8.2 g/dL) 6.7 Albumin (3.5 - 5.0 g/dL) 3.6 Globulin (1.9 - 4.2 gm/dL) 3.1 Albumin/Globulin Ratio (1.1 - 2.2 %) 1.2 Lipase (23 - 300 U/L) 107 Vitamin B12 (239 - 931 pg/mL) 418 Folate (2.76 - 20.0 ng/mL) 9.4 TSH (0.270 - 4.200 uIU/mL) 0.599 Hematology CBC w Diff NO MAN DIFF REQ WBC (4.8 - 10.8 /CUMM) 10.5 RBC (4.20 - 5.40 /CUMM) 3.12 L Hgb (12.0 - 16.0 G/DL) 8.6 L Hct (37 - 47 %) 26.0 L MCV (81.0 - 99.0 FL) 83.3 MCH (27.0 - 31.0 PG) 27.6 RDW (11.5 - 14.5 %) 18.2 H Plt Count (130 - 400 /CUMM) 307 MPV (7.4 - 10.4 FL) 7.2 L Gran % (42.2 - 75.2 %) 79.5 H Lymphocytes % (20.5 - 51.1 %) 11.0 L Monocytes % (1.7 - 9.3 %) 2.8 Eosinophils % (0 - 5 %) 6.3 H Basophils % (0.0 - 2.0 %) 0.4 Absolute Granulocytes (1.4 - 6.5 /CUMM) 8.4 H Absolute Lymphocytes (1.2 - 3.4 /CUMM) 1.2 Absolute Monocytes (0.10 - 0.60 /CUMM) 0.3 Absolute Eosinophils (0.0 - 0.7 /CUMM) 0.7 Absolute Basophils (0.0 - 0.2 /CUMM) 0 PUBS MCHC (33.0 - 37.0 G/DL) 33.1 A/P: 75 y/o F with pmh sig for diabetes, hypertension, hyperlipidemia, chronic kidney disease [follows up with Dr. Haja Mina nephrology], multiple recurrent UTI/pyelonephritis, CVA in 2013, and again in 2016 with residual left-sided weakness, and sinus bradycardia status post pacemaker placement, admitted with nausea/vomiting and diarrhea which seems to be improving. CT sacn report is not clrear about ? pancreatic head mass therefore abdominal ultrasound was ordered. Official results are not back yet but as reported to Dr. Up by doctor Caroline, there is a suspicion for gallbladder mass. Will follow up on official report. Ideally patient should have an MRI done of the abdomen. Repeat creatinine from this morning is pending. Patient did have acute renal failure with creatinine of 1.6 as of yesterday. We will follow-up on repeat creatinine after she has received IV hydration. She has been started on diet after she passed her swallow evaluation. Please consult GI. Continue other current medications are If creatinine improving and patient able to tolerate diet, will consider stopping the IV fluids. DVT prophylaxis: Heparin subcutaneous.
[2016-06-06 08:00] VITALS: BP 138/56
--- NOTE | 2016-06-06 12:23 | NUR ---
1200 LAB DRAWN AND SENT BY THIS [facility]
--- NOTE | 2016-06-06 12:54 | ULTRASOUND REPORT ---
EXAMINATION: US ABDOMEN COMPLETE CLINICAL INFORMATION: Nausea, vomiting, diarrhea. Presumptive diagnosis gastroenteritis. COMPARISON: CT scan of the abdomen and pelvis dated 06/05/2016. TECHNIQUE: Real-time imaging of the abdominal viscera. FINDINGS: PANCREAS: The pancreatic body and head and portions of the tail were visualized and are unremarkable. Remainder of the pancreas is obscured by overlying bowel gas. ABDOMINAL AORTA: The proximal segment is normal in caliber. INFERIOR VENA CAVA: Visualized portions are normal. LIVER: The liver is enlarged, with the right lobe measuring at least 19 cm on ultrasound. On recent CT scan, liver length of 20.5 cm was obtained. The liver demonstrates normal contour and echogenicity. No focal lesion or intrahepatic biliary duct dilatation. GALLBLADDER: Corresponding to the CT scan findings, there is a large lobulated 5.0 x 2.8 x 4.1 cm mixed echogenicity but primarily hyperechoic mass seen arising from the posterior wall of the gallbladder body, demonstrating prominent internal vascular flow with color Doppler imaging. This is highly suspicious for a gallbladder wall neoplasm. In addition, there is echogenic shadowing layering debris seen within the gallbladder, likely representing multiple tiny gallstones/gravel. No gallbladder wall thickening, pericholecystic fluid or sonographic Mccurdy sign is elicited. COMMON BILE DUCT: Normal in caliber measuring 0.5 cm in diameter. RIGHT KIDNEY: Normal. No hydronephrosis. No renal calculi or focal parenchymal lesions. The kidney measures 9.5 cm in maximum dimension. LEFT KIDNEY: Normal. No hydronephrosis. No renal calculi or focal parenchymal lesions. The appearance on CT scan is most likely related to prominent lobulations of the renal cortex. The kidney measures 9.3 cm in maximum dimension. SPLEEN: Normal. The spleen measures 9.7 cm in maximum dimension. FREE FLUID: None. IMPRESSION: 1. Large mildly vascular solid mass in the gallbladder body, arising from the posterior wall, highly suspicious for a malignant neoplasm. By ultrasound, no definite extra cholecystic extension or involvement of the liver is seen, though evaluation is limited in this regard. No definite adenopathy is appreciated in the silas hepatis. Consider further assessment with MRI scan with and without contrast/MRCP. 2. Calcified tiny gallstones/gravel are also seen within the gallbladder. No evidence of acute cholecystitis or biliary obstruction. 3. Hepatomegaly. 4. The mild left ureteral hydronephrosis seen on CT scan is not reproduced on this exam and appears to have resolved. 5. No focal left renal mass seen. Appearance on CT scan is most likely related to prominent lobulations of the renal cortex. Findings discussed with Dr. Monique Aranda 06/06/2016, 12:35 PM.
--- NOTE | 2016-06-06 13:08 | Cons- Gastroenterology ---
General Information and HPI Consulting Request Date of Consult: 06/06/16 Requested By: CHARLETTE HOOKER,ANGE Reason for Consult: Abdoinal pain, nausea and vomiting; abnormal US and ct scan showing a GB mass. Source of Information: patient, old records Exam Limitations: dementia, poor historian History of Present Illness: Ms. Snowden is a 75 year old female with multiple medical problems who presented to [facility] last night with reports of abdominal pain, nausea and vomiting and loose stool. The patient is a poor historian and most of the history is obtained from the chart. According to the patients son yesterday after having some chicken for lunch she developed some bilious vomiting and some loose stool. There were no reports of any hematemesis and the diarrhea was not bloody. There were also some reports of some left sided abdominal discomort. In the ER she was given IVF, reglan and phenergan with some improvement in her GI symptoms. She had subsequent imaging which revealed a gallbladder mass concerning for a malignancy for which a GI consult was called. Since coming to the ER she has been hemodynamically stable and has not had any further vomiting or diarrhea. She is also not currently complaining of any abdominal pain. Allergies/Medications Allergies: Coded Allergies: amoxicillin (PT UNSURE 06/05/16) Home Med List: Acetaminophen With Codeine (Acetaminophen-Cod #3 Tablet) 300 MG-30 MG TABLET 300 MG PO DAILY PAIN (Reported) Allopurinol 100 MG TABLET 100 MG PO DAILY GOUT (Reported) Amlodipine Besylate 10 MG TABLET 10 MG PO DAILY HEART (Reported) Aspirin (Francois Chewable Aspirin) 81 MG TAB.CHEW 81 MG PO DAILY HEART ( Reported) Carvedilol 12.5 MG TABLET 12.5 MG PO BID BLOOD PRESSURE (Reported) Clopidogrel Bisulfate (Clopidogrel) 75 MG TABLET 75 MG PO DAILY ANTIPLATELET (Reported) Fluoxetine HCl 20 MG CAPSULE 20 MG PO DAILY MENTAL HEALTH (Reported) Gabapentin 100 MG CAPSULE 100 MG PO DAILY DIABETES (Reported) Ipratropium/Albuterol Sulfate (Iprat-Albut 0.5-3(2.5) MG/3 Ml) 0.5 MG-3 MG (2.5 MG BASE)/3 ML AMPUL.NEB 0.5 MG INH PRN PRN BREATHING (Reported) Levothyroxine Sodium 112 MCG TABLET 112 MCG PO DAILY HYPOTHYROID (Reported) Mag Oxide/D3/Turmeric Rt Xt (Magnesium-Vit D3-Turmeric Cap) 500 MG-3,000 UNIT- 150 MG CAPSULE 500 MG PO DAILY SUPPLEMENT (Reported) Omeprazole 20 MG CAPSULE.DR 20 MG PO DAILY GERD (Reported) Pantoprazole Sodium 40 MG TABLET.DR 40 MG PO DAILY GERD (Reported) Pravastatin Sodium 40 MG TABLET 40 MG PO DAILY CHOLESTEROL (Reported) Saccharomyces Boulardii (Florastor) 250 MG CAPSULE 250 MG PO DAILY [employer]Trails (Reported) Sennosides (Senna) 8.6 MG TABLET 8.6 MG PO PRN CONSPTIPATION (Reported) Current Medications: Current Medications Sig/Lakshmi Start time Last Medication Dose Route Stop Time Status Admin Acetaminophen 650 MG Q6P PRN 06/06 0200 AC PO Acetaminophen 1,000 MG Q6P PRN 06/06 0200 AC IV Amlodipine Besylate 10 MG DAILY 06/06 1000 AC 06/06 PO 0921 Aspirin 81 MG DAILY 06/06 1000 AC 06/06 PO 0920 Carvedilol 12.5 MG BID 06/06 1000 AC 06/06 PO 0920 Clopidogrel Bisulfate 75 MG DAILY 06/06 1000 AC 06/06 PO 0921 Fluoxetine HCl 20 MG DAILY 06/06 1000 AC 06/06 PO 0921 Gabapentin 100 MG DAILY 06/06 1000 AC 06/06 PO 0921 Heparin Sodium 5,000 UNIT Q8 06/06 0600 AC 06/06 (Porcine) SC 0627 Insulin Aspart 0 TIDAC 06/06 0800 AC SC Levothyroxine Sodium 0.112 MG DAILY AC 06/06 0700 AC 06/06 PO 0634 Magnesium Oxide 400 MG DAILY 06/06 1000 AC 06/06 PO 0920 Metoclopramide HCl 0 .STK-MED ONE 06/05 2246 DC .ROUTE Metoclopramide HCl 10 MG ONCE ONE 06/05 2244 DC 06/05 IV 06/05 Morphine Sulfate 2 MG ONCE ONE 06/05 2044 DC 06/05 IV 06/05 Morphine Sulfate 0 .STK-MED ONE 06/05 2038 DC .ROUTE Omeprazole 20 MG DAILY AC 06/06 0700 AC 06/06 PO 0634 Ondansetron HCl 4 MG Q6P PRN 06/06 0200 AC IV Ondansetron HCl 0 .STK-MED ONE 06/05 2038 DC .ROUTE Ondansetron HCl 4 MG ONCE ONE 06/06 1999 DC 06/05 IV 06/05 Oxycodone/ 1 TAB Q6P PRN 06/06 199 AC Acetaminophen PO Pravastatin Sodium 40 MG 1700 06/06 1700 AC PO Promethazine HCl 0 .STK-MED ONE 06/05 235 DC .ROUTE Promethazine HCl 12.5 MG ONCE ONE 06/05 2344 DC 06/05 IV 06/05 2345 235 Senna/Docusate Sodium 2 TAB DAILY NEEDED PRN 06/06 0145 AC PO Sodium Chloride 1,000 ML Q13H 06/06 0200 AC 06/06 IV 06/07 358 0235 Sodium Chloride 500 ML BOLUS ONE 06/05 1944 DC 06/05 IV 06/05 Past History Travel History Traveled to [place] past 21 day No Medical History Blood Transfusion Hx: No Neurological: 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 Home Services at Home: Home Health Aide Smoking Status: Former Smoker ETOH Use: denies use Illicit Drug Use: denies illicit drug use Review of Systems Review of Systems Constitutional: Reports: malaise, weakness. Denies: fever. EENTM: Denies: no symptoms. Cardiovascular: Denies: no symptoms. Respiratory: Denies: no symptoms. GI: Reports: see HPI. Genitourinary: Denies: no symptoms. Musculoskeletal: Denies: no symptoms. Skin: Denies: no symptoms. Neurological/Psychological: Reports: confusion, dementia. Hematologic/Endocrine: Denies: no symptoms. Immunologic/Allergic: Denies: no symptoms. All Other Systems: Reviewed and Negative Exam & Diagnostic Data Vital Signs and I&O Vital Signs Date Time Temp Pulse Resp B/P B/P Pulse O2 O2 Flow FiO2 Mean Ox Delivery Rate 06/06 1025 97.0 72 19 168/70 95 Room Air 06/06 0921 61 138/56 06/06 0920 61 138/56 06/06 0800 61 138/56 06/06 0627 96.6 61 18 172/72 95 Room Air 06/06 0039 96.8 60 18 169/75 92 Room Air 06/05 2259 96.9 58 18 194/79 95 Room Air 06/05 1934 97.5 61 18 128/58 94 Room Air Intake & Output 06/06 1600 06/06 0400 06/05 1600 06/05 0400 06/04 1600 06/04 0400 Intake Total 120 1000 Output Total 800 Balance -680 1000 Intake, IV 1000 Intake, Oral 120 Number 0 Bowel Movements Output, Urine 800 Patient 171 lb 200 lb Weight Weight Reported by Patient Estimated Measurement Method Physical Exam General Appearance: well developed/nourished, no apparent distress, alert, awake , comfortable Head: atraumatic, normal appearance Eyes: Bilateral: normal appearance. Ears, Nose, Throat: normal pharynx, normal ENT inspection Neck: normal inspection, supple Respiratory: normal breath sounds, chest non-tender, no respiratory distress Cardiovascular: regular rate/rhythm Gastrointestinal: normal bowel sounds, soft, non-tender Rectal: deferred Back: normal inspection Extremities: no edema Neurologic/Psych: no motor/sensory deficits, awake, alert Skin: intact, normal color, warm/dry Results Pertinent Lab Results: Laboratory Tests 06/06 06/05 06/05 1218 2303 2258 Chemistry Sodium (137 - 145 mmol/L) 139 Potassium (3.5 - 5.1 mmol/L) 5.0 Chloride (98 - 107 mmol/L) 105 Carbon Dioxide (22 - 30 mmol/L) 24 Anion Gap (5 - 16) 10 BUN (7 - 17 mg/dL) 35 H Creatinine (0.5 - 1.0 mg/dL) 1.7 H Estimated GFR (>60 ml/min) 29 L BUN/Creatinine Ratio (7 - 25 %) 20.6 Lactic Acid Cancelled Urines Urinalysis MOD H Urine Color (YEL,AMB,STR) YEL Urine Clarity (CLEAR) CLEAR Urine pH (5.0 - 8.0) 7.0 Ur Specific [place] (1.001 - 1.035) 1.020 Urine Protein (NEG,<30 MG/DL) >=300 H Urine Ketones (NEG) NEG Urine Nitrite (NEG) NEG Urine Bilirubin (NEG) NEG Urine Urobilinogen (0.1 - 1.0 EU/dl) 0.2 Ur Leukocyte Esterase (NEG) NEG Ur Microscopic SEDIMENT EXAMINED Urine RBC (0 - 5 /HPF) 1-3 Urine WBC (0 - 2 /HPF) 5-10 H Ur Epithelial Cells (NONE,FEW) FEW Micro UA Comment BUDDING YEAST H Urine Hemoglobin (NEG) TRACE-INTACT Urine Glucose (N MG/DL) NEG 06/05 Chemistry Sodium (137 - 145 mmol/L) 136 L Potassium (3.5 - 5.1 mmol/L) 5.1 Chloride (98 - 107 mmol/L) 100 Carbon Dioxide (22 - 30 mmol/L) 25 Anion Gap (5 - 16) 12 BUN (7 - 17 mg/dL) 36 H Creatinine (0.5 - 1.0 mg/dL) 1.6 H Estimated GFR (>60 ml/min) 31 L BUN/Creatinine Ratio (7 - 25 %) 22.5 Glucose (65 - 99 mg/dL) 150 H Lactic Acid (0.7 - 2.1 mmol/L) 0.6 L Calcium (8.4 - 10.2 mg/dL) 9.6 Iron (37 - 170 ug/dL) 50 Ferritin (11.1 - 264 ng/mL) 20.0 Total Bilirubin (0.2 - 1.3 mg/dL) 0.5 AST (14 - 36 U/L) 20 ALT (9 - 52 U/L) 23 Alkaline Phosphatase (<127 U/L) 79 Troponin I (< 0.11 ng/ml) < 0.01 Total Protein (6.3 - 8.2 g/dL) 6.7 Albumin (3.5 - 5.0 g/dL) 3.6 Globulin (1.9 - 4.2 gm/dL) 3.1 Albumin/Globulin Ratio (1.1 - 2.2 %) 1.2 Lipase (23 - 300 U/L) 107 Vitamin B12 (239 - 931 pg/mL) 418 Folate (2.76 - 20.0 ng/mL) 9.4 TSH (0.270 - 4.200 uIU/mL) 0.599 Hematology CBC w Diff NO MAN DIFF REQ WBC (4.8 - 10.8 /CUMM) 10.5 RBC (4.20 - 5.40 /CUMM) 3.12 L Hgb (12.0 - 16.0 G/DL) 8.6 L Hct (37 - 47 %) 26.0 L MCV (81.0 - 99.0 FL) 83.3 MCH (27.0 - 31.0 PG) 27.6 RDW (11.5 - 14.5 %) 18.2 H Plt Count (130 - 400 /CUMM) 307 MPV (7.4 - 10.4 FL) 7.2 L Gran % (42.2 - 75.2 %) 79.5 H Lymphocytes % (20.5 - 51.1 %) 11.0 L Monocytes % (1.7 - 9.3 %) 2.8 Eosinophils % (0 - 5 %) 6.3 H Basophils % (0.0 - 2.0 %) 0.4 Absolute Granulocytes (1.4 - 6.5 /CUMM) 8.4 H Absolute Lymphocytes (1.2 - 3.4 /CUMM) 1.2 Absolute Monocytes (0.10 - 0.60 /CUMM) 0.3 Absolute Eosinophils (0.0 - 0.7 /CUMM) 0.7 Absolute Basophils (0.0 - 0.2 /CUMM) 0 PUBS MCHC (33.0 - 37.0 G/DL) 33.1 Imaging/Other Studies: EXAM TYPE: CAT - CT ABD & PELVIS W/O IV CONTRAS EXAMINATION: CT ABDOMEN AND PELVIS WITHOUT CONTRAST CLINICAL INFORMATION: Pain, diarrhea, vomiting COMPARISON: None TECHNIQUE: Multidetector volumetric imaging was performed from the superior aspect of the liver through the pubic symphysis. Sagittal and coronal reformatted images were obtained on the technologist's workstation. DLP: 796 mGy-cm FINDINGS: Mild atelectasis or scarring at the bases. Upper abdomen There is mixed attenuation in the gallbladder. This may represent gallstones. Blood or other complex fluid would be a consideration. 2 calcifications in the region of the head of the pancreas. I cannot exclude common duct calculi. Largest is measuring 4 mm. The spleen is within normal limits. The adrenal glands are within normal limits. The pancreas shows no evidence for lesion. No free fluid is seen here. There is no adenopathy in the upper abdomen. The bowel pattern is felt to be within normal limits. The aorta is calcified but nondilated. Kidneys appear lobulated. This is a noncontrast study. Cannot exclude underlying lesion here. Bulbous appearance in the left d. Recommend ultrasound. I cannot exclude some mild hydronephrosis on the left in the left ureter is dilated. In the pelvis left ureter may lead up to a very small calculus at the level of the UVJ. Measures 2 mm. No free fluid in the deep pelvis. The sigmoid shows diverticulosis but no convincing evidence for diverticulitis. There is no bulky adenopathy here. IMPRESSION: Several subtle findings here. Mixed attenuation in the gallbladder and findings in the head of the pancreas which may suggest common duct stones. Correlation recommended clinically. Recommend ultrasound to further evaluate. MRCP may also be useful Prominent left ureter which may be lead up to a very small 2 mm calculus at the UVJ. There is also some mild fullness of left collecting system and pyelonephritis cannot be excluded and would be in the differential here. Bulbous appearance to the mid to inferior aspect of left kidney. Ultrasound would be recommended to exclude mass. The bowel pattern is nonobstructive. No free fluid. Diverticulosis but no evidence for diverticulitis here. EXAM TYPE: US - US-COMPLETE ABDOMEN EXAMINATION: US ABDOMEN COMPLETE CLINICAL INFORMATION: Nausea, vomiting, diarrhea. Presumptive diagnosis gastroenteritis. COMPARISON: CT scan of the abdomen and pelvis dated 06/05/2016. TECHNIQUE: Real-time imaging of the abdominal viscera. FINDINGS: PANCREAS: The pancreatic body and head and portions of the tail were visualized and are unremarkable. Remainder of the pancreas is obscured by overlying bowel gas. ABDOMINAL AORTA: The proximal segment is normal in caliber. INFERIOR VENA CAVA: Visualized portions are normal. LIVER: The liver is enlarged, with the right lobe measuring at least 19 cm on ultrasound. On recent CT scan, liver length of 20.5 cm was obtained. The liver demonstrates normal contour and echogenicity. No focal lesion or intrahepatic biliary duct dilatation. GALLBLADDER: Corresponding to the CT scan findings, there is a large lobulated 5.0 x 2.8 x 4.1 cm mixed echogenicity but primarily hyperechoic mass seen arising from the posterior wall of the gallbladder body, demonstrating prominent internal vascular flow with color Doppler imaging. This is highly suspicious for a gallbladder wall neoplasm. In addition, there is echogenic shadowing layering debris seen within the gallbladder, likely representing multiple tiny gallstones/gravel. No gallbladder wall thickening, pericholecystic fluid or sonographic Mccurdy sign is elicited. COMMON BILE DUCT: Normal in caliber measuring 0.5 cm in diameter. RIGHT KIDNEY: Normal. No hydronephrosis. No renal calculi or focal parenchymal lesions. The kidney measures 9.5 cm in maximum dimension. LEFT KIDNEY: Normal. No hydronephrosis. No renal calculi or focal parenchymal lesions. The appearance on CT scan is most likely related to prominent lobulations of the renal cortex. The kidney measures 9.3 cm in maximum dimension. SPLEEN: Normal. The spleen measures 9.7 cm in maximum dimension. FREE FLUID: None. IMPRESSION: 1. Large mildly vascular solid mass in the gallbladder body, arising from the posterior wall, highly suspicious for a malignant neoplasm. By ultrasound, no definite extra cholecystic extension or involvement of the liver is seen, though evaluation is limited in this regard. No definite adenopathy is appreciated in the silas hepatis. Consider further assessment with MRI scan with and without contrast/MRCP. 2. Calcified tiny gallstones/gravel are also seen within the gallbladder. No evidence of acute cholecystitis or biliary obstruction. 3. Hepatomegaly. 4. The mild left ureteral hydronephrosis seen on CT scan is not reproduced on this exam and appears to have resolved. 5. No focal left renal mass seen. Appearance on CT scan is most likely related to prominent lobulations of the renal cortex. Assessment/Plan Assessment/Recommendations: Assessment: Ms. Snowden is a 75 year old female with multiple medcial problems who presented yesterday with nausea, vomiting and diarrhea without concerning GI warnign signs and which was likely secondary to viral gastroenteritis who has been found to have a gallbladder mass which I don't feel is related to her current symptoms, but based on its appearance is concerning for a malignancy. As her LFTs are normal and there is no other obvious pathology in her liver it is likely that the mass is limited to her gallbladder and therefore consideration should be given for a cholecystectomy if she is a surgical candidate and the patient and family are agreeable to surgery. As her nausea, vomiting and diarrhea have not persisted since she has been here I don't feel that any further interventions are necessary for this at this time, but would send stool studies if she has any diarrhea while she is admitted. Recommendations: 1. Call a surgical consult for evalaution for a CCY 2. Follow daily lfts 3. Advance diet as tolerated 4. Administer anti-emetics as needed 5. Continue oral omeprazole 6. Consider MR for further evaluation if surgery is being considered. 7. Would check stool studies for c. diff, culture and o and p if she has any diarrhea while she is in house. Would ask that GI be recontacted for any new or persistent issues, but as her diarrhea and vomiting have resolved and removing her gallbladder would be at the discretion of surgery I will not contniue to follow her. Problem List: 1. Nausea and vomiting 2. Abdominal pain Copies To: HASEEB HOOKER,[place]OR[place] Wallace; SARAH HOOKER,MAYNOR Hanks Consult Acknowledgment - Thank you for your consult request.
--- NOTE | 2016-06-06 13:58 | NUR ---
[facility] assignment [id number]
--- NOTE | 2016-06-06 15:32 | Cons- General Surgery ---
General Information and HPI Consulting Request Date of Consult: 06/06/16 Requested By: CHARLETTE HOOKER,ANGE Reason for Consult: GALLBLADDER MASS History of Present Illness: I was asked to see this 75-year-old woman was admitted to the medical service for nausea vomiting and diarrhea. She is a poor historian and cannot recollect the events that led to her admission. She does recall that she had nausea vomiting diarrhea and upper abdominal pain. She thinks the pain was more severe on the right side. Currently she is pain-free and is tolerating a diet. CT scan on admission showed vague findings in the gallbladder suggestive of a mass. There was also some small gallstones but no pericholecystic inflammatory changes. Subsequent ultrasound performed today shows a hyperechoic mass associated with the posterior wall the gallbladder and vascular flow. Allergies/Medications Allergies: Coded Allergies: amoxicillin (PT UNSURE 06/05/16) Home Med List: Acetaminophen With Codeine (Acetaminophen-Cod #3 Tablet) 300 MG-30 MG TABLET 300 MG PO DAILY PAIN (Reported) Allopurinol 100 MG TABLET 100 MG PO DAILY GOUT (Reported) Amlodipine Besylate 10 MG TABLET 10 MG PO DAILY HEART (Reported) Aspirin (Francois Chewable Aspirin) 81 MG TAB.CHEW 81 MG PO DAILY HEART ( Reported) Carvedilol 12.5 MG TABLET 12.5 MG PO BID BLOOD PRESSURE (Reported) Clopidogrel Bisulfate (Clopidogrel) 75 MG TABLET 75 MG PO DAILY ANTIPLATELET (Reported) Fluoxetine HCl 20 MG CAPSULE 20 MG PO DAILY MENTAL HEALTH (Reported) Gabapentin 100 MG CAPSULE 100 MG PO DAILY DIABETES (Reported) Ipratropium/Albuterol Sulfate (Iprat-Albut 0.5-3(2.5) MG/3 Ml) 0.5 MG-3 MG (2.5 MG BASE)/3 ML AMPUL.NEB 0.5 MG INH PRN PRN BREATHING (Reported) Levothyroxine Sodium 112 MCG TABLET 112 MCG PO DAILY HYPOTHYROID (Reported) Mag Oxide/D3/Turmeric Rt Xt (Magnesium-Vit D3-Turmeric Cap) 500 MG-3,000 UNIT- 150 MG CAPSULE 500 MG PO DAILY SUPPLEMENT (Reported) Omeprazole 20 MG CAPSULE.DR 20 MG PO DAILY GERD (Reported) Pantoprazole Sodium 40 MG TABLET.DR 40 MG PO DAILY GERD (Reported) Pravastatin Sodium 40 MG TABLET 40 MG PO DAILY CHOLESTEROL (Reported) Saccharomyces Boulardii (Florastor) 250 MG CAPSULE 250 MG PO DAILY [employer] (Reported) Sennosides (Senna) 8.6 MG TABLET 8.6 MG PO PRN CONSPTIPATION (Reported) Current Medications: Current Medications Sig/Lakshmi Start time Last Medication Dose Route Stop Time Status Admin Acetaminophen 650 MG Q6P PRN 06/06 0200 AC PO Acetaminophen 1,000 MG Q6P PRN 06/06 0200 AC IV Amlodipine Besylate 10 MG DAILY 06/06 1000 AC 06/06 PO 0921 Aspirin 81 MG DAILY 06/06 1000 AC 06/06 PO 0920 Carvedilol 12.5 MG BID 06/06 1000 AC 06/06 PO 0920 Clopidogrel Bisulfate 75 MG DAILY 06/06 1000 AC 06/06 PO 0921 Fluoxetine HCl 20 MG DAILY 06/06 1000 AC 06/06 PO 0921 Gabapentin 100 MG DAILY 06/06 1000 AC 06/06 PO 0921 Heparin Sodium 5,000 UNIT Q8 06/06 0600 AC 06/06 (Porcine) SC 0627 Insulin Aspart 0 TIDAC 06/06 0800 AC SC Levothyroxine Sodium 0.112 MG DAILY AC 06/06 0700 AC 06/06 PO 0634 Magnesium Oxide 400 MG DAILY 06/06 1000 AC 06/06 PO 0920 Metoclopramide HCl 0 .STK-MED ONE 06/05 2246 DC .ROUTE Metoclopramide HCl 10 MG ONCE ONE 06/05 2244 DC 06/05 IV 06/05 2245 2301 Morphine Sulfate 2 MG ONCE ONE 06/05 2044 DC 06/05 IV 06/05 Morphine Sulfate 0 .STK-MED ONE 06/05 2038 DC .ROUTE Omeprazole 20 MG DAILY AC 06/06 0700 AC 06/06 PO 0634 Ondansetron HCl 4 MG Q6P PRN 06/060 AC IV Ondansetron HCl 0 .STK-MED ONE 06/05 2038 DC .ROUTE Ondansetron HCl 4 MG ONCE ONE 06/06 1999 DC 06/05 IV 06/05 Oxycodone/ 1 TAB Q6P PRN 06/06 0200 AC Acetaminophen PO Pravastatin Sodium 40 MG 1700 06/06 1700 AC PO Promethazine HCl 0 .STK-MED ONE 06/05 2352 DC .ROUTE Promethazine HCl 12.5 MG ONCE ONE 06/05 2345 DC 06/05 IV 06/05 2346 2355 Senna/Docusate Sodium 2 TAB DAILY NEEDED PRN 06/06 0145 AC PO Sodium Chloride 1,000 ML Q13H 06/06 0200 DC 06/06 IV 06/06 1159 0235 Sodium Chloride 500 ML BOLUS ONE 06/05 194 DC 06/05 IV 06/05 Past History Medical History Blood Transfusion Hx: No Neurological: S/P CVA W/ RESIDUAL L SIDED WEAKNESS Cardiovascular: symptomatic bradycardia s/p PPM Respiratory: NONE Gastrointestinal: NONE Hepatic: NONE Renal: CKD Musculoskeletal: ARTHRITIS Psychiatric: NONE Endocrine: diabetes Blood Disorders: anemia Cancer(s): NONE GENERAL CONTRACTOR/Reproductive: NONE Surgical History Pertinent Surgical History: PACEMAKER, BREAST BIOPSY Family History Relations & Conditions If Any: Relation not specified for: *No pertinent family history Psychosocial History Where Do You Live? Home Services at Home: Home Health Aide Smoking Status: Former Smoker ETOH Use: denies use Illicit Drug Use: denies illicit drug use Review of Systems Review of Systems: MINIMALLY AMBULATORY WITH ASSISTANCE. NO CHEST PAIN. LEFT SIDED WEAKNESS. MILD BRAGG. REMAINDER 10 NEG. Exam & Diagnostic Data Vital Signs and I&O Vital Signs Date Time Temp Pulse Resp B/P B/P Pulse O2 O2 Flow FiO2 Mean Ox Delivery Rate 06/06 1025 97.0 72 19 168/70 95 Room Air 06/06 0921 61 138/56 06/06 0920 61 138/56 06/06 0800 61 138/56 06/06 0627 96.6 61 18 172/72 95 Room Air 06/06 0039 96.8 60 18 169/75 92 Room Air 06/05 2259 96.9 58 18 194/79 95 Room Air 06/05 1934 97.5 61 18 128/58 94 Room Air Intake & Output 06/06 1600 06/06 0800 06/06 0000 06/05 1600 06/05 0800 06/05 0000 Intake Total 600 108 3320 Output Total 225 800 Balance 240 -680 1000 Intake, IV 225 1000 Intake, Oral 240 120 Number 0 0 Bowel Movements Output, Urine 225 800 Patient 171 lb 200 lb Weight Weight Reported by Patient Estimated Measurement Method Physical Exam: GEN: Obese no distress left-sided facial droop looks stated age HEENT: PERRL EOMI moist mucosal membranes Chest: Nontender normal excursion normal effort Abdomen: Soft and tender right upper quadrant no guarding negative Mccurdy sign no hernia no mass Last 24 Hours of Labs: Laboratory Tests 06/06 06/05 06/05 1218 2303 2258 Chemistry Sodium (137 - 145 mmol/L) 139 Potassium (3.5 - 5.1 mmol/L) 5.0 Chloride (98 - 107 mmol/L) 105 Carbon Dioxide (22 - 30 mmol/L) 24 Anion Gap (5 - 16) 10 BUN (7 - 17 mg/dL) 35 H Creatinine (0.5 - 1.0 mg/dL) 1.7 H Estimated GFR (>60 ml/min) 29 L BUN/Creatinine Ratio (7 - 25 %) 20.6 Lactic Acid Cancelled Urines Urinalysis MOD H Urine Color (YEL,AMB,STR) YEL Urine Clarity (CLEAR) CLEAR Urine pH (5.0 - 8.0) 7.0 Ur Specific [place] (1.001 - 1.035) 1.020 Urine Protein (NEG,<30 MG/DL) >=300 H Urine Ketones (NEG) NEG Urine Nitrite (NEG) NEG Urine Bilirubin (NEG) NEG Urine Urobilinogen (0.1 - 1.0 EU/dl) 0.2 Ur Leukocyte Esterase (NEG) NEG Ur Microscopic SEDIMENT EXAMINED Urine RBC (0 - 5 /HPF) 1-3 Urine WBC (0 - 2 /HPF) 5-10 H Ur Epithelial Cells (NONE,FEW) FEW Micro UA Comment BUDDING YEAST H Urine Hemoglobin (NEG) TRACE-INTACT Urine Glucose (N MG/DL) NEG 06/05 Chemistry Sodium (137 - 145 mmol/L) 136 L Potassium (3.5 - 5.1 mmol/L) 5.1 Chloride (98 - 107 mmol/L) 100 Carbon Dioxide (22 - 30 mmol/L) 25 Anion Gap (5 - 16) 12 BUN (7 - 17 mg/dL) 36 H Creatinine (0.5 - 1.0 mg/dL) 1.6 H Estimated GFR (>60 ml/min) 31 L BUN/Creatinine Ratio (7 - 25 %) 22.5 Glucose (65 - 99 mg/dL) 150 H Lactic Acid (0.7 - 2.1 mmol/L) 0.6 L Calcium (8.4 - 10.2 mg/dL) 9.6 Iron (37 - 170 ug/dL) 50 Ferritin (11.1 - 264 ng/mL) 20.0 Total Bilirubin (0.2 - 1.3 mg/dL) 0.5 AST (14 - 36 U/L) 20 ALT (9 - 52 U/L) 23 Alkaline Phosphatase (<127 U/L) 79 Troponin I (< 0.11 ng/ml) < 0.01 Total Protein (6.3 - 8.2 g/dL) 6.7 Albumin (3.5 - 5.0 g/dL) 3.6 Globulin (1.9 - 4.2 gm/dL) 3.1 Albumin/Globulin Ratio (1.1 - 2.2 %) 1.2 Lipase (23 - 300 U/L) 107 Vitamin B12 (239 - 931 pg/mL) 418 Folate (2.76 - 20.0 ng/mL) 9.4 TSH (0.270 - 4.200 uIU/mL) 0.599 Hematology CBC w Diff NO MAN DIFF REQ WBC (4.8 - 10.8 /CUMM) 10.5 RBC (4.20 - 5.40 /CUMM) 3.12 L Hgb (12.0 - 16.0 G/DL) 8.6 L Hct (37 - 47 %) 26.0 L MCV (81.0 - 99.0 FL) 83.3 MCH (27.0 - 31.0 PG) 27.6 RDW (11.5 - 14.5 %) 18.2 H Plt Count (130 - 400 /CUMM) 307 MPV (7.4 - 10.4 FL) 7.2 L Gran % (42.2 - 75.2 %) 79.5 H Lymphocytes % (20.5 - 51.1 %) 11.0 L Monocytes % (1.7 - 9.3 %) 2.8 Eosinophils % (0 - 5 %) 6.3 H Basophils % (0.0 - 2.0 %) 0.4 Absolute Granulocytes (1.4 - 6.5 /CUMM) 8.4 H Absolute Lymphocytes (1.2 - 3.4 /CUMM) 1.2 Absolute Monocytes (0.10 - 0.60 /CUMM) 0.3 Absolute Eosinophils (0.0 - 0.7 /CUMM) 0.7 Absolute Basophils (0.0 - 0.2 /CUMM) 0 PUBS MCHC (33.0 - 37.0 G/DL) 33.1 Imaging Results: CT scan of the abdomen pelvis performed 06/05/2016 was personally reviewed. The images show concerns for intraluminal mass of the gallbladder. There is no extension into the liver. There are no pericholecystic inflammatory changes no guarding or ductal dilatation Ultrasound shows posterior wall gallbladder mass with vascular flow measuring 5 cm in greatest dimension Assessment/Plan Assessment/Plan 75-year-old debilitated woman with left hemiparesis from a stroke. She presents with abdominal pain consistent with biliary pain. Imaging studies suggested the presence of gallbladder malignancy. At this time she appears to be tolerating diet without worsening pain. Therefore the presence of acute cholecystitis is unlikely. For further workup of her gallbladder mass, recommend MRI with and without contrast as per the radiologist's recommendations on the ultrasound. If indeed a resectable gallbladder cancer is found, she should be referred as an outpatient to a hepatobiliary specialist for consideration of surgical resection. This can be performed at either [facility] (Dr. Ocasio ) or [facility]. Copies To: HASEEB HOOKER,[place] Wallace Consult Acknowledgment - Thank you for your consult request.
--- NOTE | 2016-06-06 16:00 | NUR ---
PT ARRIVED TO FLOOR AT 1600 VIA STRETCHER FROM ER. PT ALERT/VERBAL/ORIENTEDX3. ON RA. LUNGS CLEAR. NO DISTRESS. DENIES ANY CP. VSS. SKIN INTACT. PT HAD A CVA IN SEPTEMBER 2015 AND HAS L SIDED RESIDUL AND WEAKNESS. L ARM RESTRICTED, SIGN IN PLACE. SIZEWISE ORDERED DUE TO PTS IMMOBILITY. #20 RAC FLUSHING EASILY. ACCUCHECK DONE, 180. PT ON MECH SOFT AND NECTAR THICK DIET. PT HAS RECIO IN PLACE DRAINING TO GRAVITY. HX OF FALLS, FALL PRECAUTIONS IN PLACE- BED ALAM PLUGGED IN. PT UNDERSTANDS USE OF CALL TSANG. DENIES ANY PAIN OR NAUSEA & VOMITING AT THIS TIME. SON AT BEDSIDE. ORIENTED TO ROOM, CALL TSANG, AND SURROUNDINGS. WILL CONTINUE TO MONITOR.
[2016-06-06 16:30] VITALS: BP 150/60
--- NOTE | 2016-06-06 16:30 | NUR ---
PTS RECIO OUTPUT NOTED TO BE TEA COLORED/DARK OSMEL. BUILDING SUPERINTENDENT VIOLETTE NOTIFIED. THIS RN DRAINED RECIO BAG AND WILL MONITOR FURTHER OUTPUT FOR COLOR. WILL LET BUILDING SUPERINTENDENT KNOW. WILL CONTINUE TO MONITOR.
[2016-06-06 22:34] VITALS: BP 152/60
--- NOTE | 2016-06-07 07:41 | PN- Housestaff ---
NATASHA UP 06/07/16 0740: Subjective Follow-up For: Nausea vomiting and diarrhea Gallbladder mass Complaints: no complaints Subjective: Patient was seen and examined this morning she was lying comfortably on bed without any complaints. She didn't have a bowel movement since yesterday. She dropped her H&H to 7.2 and 22.1 today. We will guaiac her stool. She remained afebrile with temperature 90.8, pulse 63, respiratory rate 18, blood pressure 164/66 this morning and she is saturating 90% on room air. She is on mechanical shop and nectar thickened fluids and tolerating that well but we will do a barium swallow evaluation today . Review of Systems Constitutional: Denies: chills, diaphoresis. EENTM: Denies: blurred vision, double vision. Cardiovascular: Denies: chest pain, edema. Respiratory: Denies: cough, hemoptysis. Gastrointestinal: Denies: abdominal pain, bloating. Genitourinary: Denies: frequency, hematuria, hesitation. Objective Last 24 Hrs of Vital Signs/I&O Vital Signs Date Time Temp Pulse Resp B/P B/P Pulse O2 O2 Flow FiO2 Mean Ox Delivery Rate 06/07 0745 98.0 63 18 164/66 90 Room Air 06/06 2234 98.6 62 19 152/60 91 Room Air 06/06 2221 63 160/60 06/06 1630 98.3 62 20 150/60 92 Room Air 06/06 1025 97.0 72 19 168/70 95 Room Air 06/06 0921 61 138/56 06/06 0920 61 138/56 Intake & Output 06/07 1600 06/07 0800 06/07 0000 Intake Total 100 50 Output Total 675 200 Balance -575 -150 Intake, Oral 100 50 Output, Urine 675 200 Physical Exam General Appearance: Alert, Oriented X3, Cooperative, No Acute Distress Skin: No Breakdown Cardiovascular: Regular Rate, Normal S1, Normal S2 Lungs: Normal Air Movement Abdomen: Soft, mild right upper quardrant tenderness Neurological: Sensation Intact, left sided residual weakness and facial droop from previous cva Current Medications: Current Medications Sig/Lakshmi Start time Last Medication Dose Route Stop Time Status Admin Acetaminophen 650 MG Q6P PRN 06/06 0200 AC PO Acetaminophen 1,000 MG Q6P PRN 06/06 0200 AC IV Amlodipine Besylate 10 MG DAILY 06/06 1000 AC 06/06 PO 0921 Aspirin 81 MG DAILY 06/06 1000 AC 06/06 PO 0920 Carvedilol 12.5 MG BID 06/06 1000 AC 06/06 PO 2221 Clopidogrel Bisulfate 75 MG DAILY 06/06 1000 AC 06/06 PO 0921 Fluoxetine HCl 20 MG DAILY 06/06 1000 AC 06/06 PO 0921 Gabapentin 100 MG DAILY 06/06 1000 AC 06/06 PO 0921 Heparin Sodium 5,000 UNIT Q8 06/06 0600 AC 06/07 (Porcine) SC 0604 Insulin Aspart 0 TIDAC 06/06 0800 AC 06/06 SC 1659 Levothyroxine Sodium 0.112 MG DAILY AC 06/06 0700 AC 06/07 PO 0603 Magnesium Oxide 400 MG DAILY 06/06 1000 AC 06/06 PO 0920 Omeprazole 20 MG DAILY AC 06/06 0700 AC 06/07 PO 0604 Ondansetron HCl 4 MG Q6P PRN 06/06 0200 AC IV Oxycodone/ 1 TAB Q6P PRN 06/06 0200 AC 06/07 Acetaminophen PO 0604 Pravastatin Sodium 40 MG 1700 06/06 1700 AC 06/06 PO 1714 Senna/Docusate Sodium 2 TAB DAILY NEEDED PRN 06/06 0145 AC PO Sodium Chloride 1,000 ML Q13H 06/06 0200 DC 06/06 IV 06/06 1159 0235 Last 24 Hrs of Lab/Yony Results Last 24 Hrs of Labs/Mics: Laboratory Tests 06/07/16 0705: Anion Gap 9, Estimated GFR 29 L, BUN/Creatinine Ratio 20.0, Total Bilirubin 0.3 , Direct Bilirubin 0.2, AST 17, ALT 26, Alkaline Phosphatase 57, Total Protein 5.7 L, Albumin 3.0 L, CBC w Diff NO MAN DIFF REQ, RBC 2.62 L, MCV 84.3, MCH 27.6, RDW 18.9 H, MPV 7.6, Gran % 59.3, Lymphocytes % 27.1, Monocytes % 7.3, Eosinophils % 6.0 H, Basophils % 0.3, Absolute Granulocytes 3.5, Absolute Lymphocytes 1.6, Absolute Monocytes 0.4, Absolute Eosinophils 0.4, Absolute Basophils 0, PUBS MCHC 32.8 L 04/27/17 1218: Anion Gap 10, Estimated GFR 29 L, BUN/Creatinine Ratio 20.6 Microbiology 06/06 1545 STOOL: Clostridium difficile Toxin A & B - COLB 06/06 1545 STOOL: Stool Culture - COLB Assessment/Plan Assessment: Mrs. Snowden is a 75 year old female with significant past medical history of diabetes, hypertension, hyperlipidemia, chronic kidney disease [follows up with Dr. 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 Significant labs, H&H 8.6/26, white blood cell count 10.5, platelets 307. BUNs/ creatinine 36/1.6, blood sugar 150. Urinalysis showed 1+ proteinuria with 5-[address] showed several subtle findings including mixed attenuation in the gallbladder and findings in the head of the pancreas which may suggest common duct stones, as well as a prominent left ureter which may be lead up to a very small 2 mm calculus at the UVJ. There is also some mild fullness of left collecting system. Problem List/Assessment and Plan Nausea/vomitting/diarrhea * Admit the patient to for rehydration with IV fluids and anti-emetics * We'll continue normal saline at 75 mL per hour 2 bags and 4 mg of IV Zofran every 4-6 hours as needed * Nausea, vomiting and abdominal pain associated with diarrhea most likely gastro-enteritis viral in origin which is resolved now. * On abdominal ultrasound yesterday a large lobulated 5.0 x 2.18x4.1 cm mixed echogenicity but primarily hyperechoic Mac was seen that was arising from posterior wall of gallbladder. Which was highly suspicious for malignancy/ neoplasm. Gastroenterology and surgery was consulted for evaluating patient for cholecystectomy. Patient was seen by Dr. Mina and Dr. López yesterday. Recommendations were to get MRI done. I spoke with IR Dr. Damon yesterday but due to her CK D with creatinine of 1.7 and GFR of 29 it's not safe to give patient contrast to compromise her kidneys but it all depends on how important it test is an I will discuss with surgery today. At her surgery has to be done as outpatient with either adhesions or [place]. We will have a family meeting around 1:00 today to discuss the goals of care and future plan. If we are not pursuing with MRI here today, patient might go home and will work out as outpatient in collaboration with the gastroenterology and hepatobiliary specialist surgeon. HTN/CVA * continue home meds, carvedilol 12.5 mg twice a day, amlodipine 10mg daily, aspirin 81 mg, clopidogrel 75 mg, and pravastatin 40 daily. DM * Patient is not on any antidiabetic medication however we will place her on a NovoLog sliding scale and check fingersticks 3 times a day before meals and at bedtime CKD * BUNs/creatinine 36/1.6. We do not have a baseline BUN/creatinine however we will recheck BUN/creatinine after hydration tomorrow. Per the son the patient does have chronic kidney disease with approximately 25% renal function. * I called her PCP Dr. Jose MEMBRENO ask about patient's previous creatinine and he told me that the last BEP from May showed that her creatinine was 2.2, BUNs 34, GFR 23. Her hemoglobin A1c was 6.2. Patient had a recent ultrasound that was especially for kidney/neurogenic bladder and gallbladder sludge was noted. Hypothyroidism * Continue synthroid 112 mcg daily. DNR/DNI heart healthy diet heparin for dvt ppx pain pathway Problem List: 1. CKD (chronic kidney disease) 2. Chronic anemia 3. Nausea and vomiting Pain Ratin Pain Location: Not applicable Pain Goal: Remain pain free Pain Plan: Tylenol Tomorrow's Labs & Rationales: CBC and BMP ELI HOOKER,NAN 06/07/16 1118: Attending MD Review Statement Attending Statement Attending MD Statement: examined this patient, discuss w/resident/PA/HYDROELECTRIC COMPONENT MACHINIST, agreed w/resident/PA/HYDROELECTRIC COMPONENT MACHINIST, discussed with family, reviewed EMR data (avail), discussed with nursing, discussed with case mgmt, reviewed images, amended to note Attending Assessment/Plan: Patient seen and examined, feels overall beter, Denies any further nausea/ vomiting. Diarrhea has also improved. Patient had an abdominal ultrasound done yesterday which showed a possibility of gallbladder mass. MRI was recommended with and without contrast. Unfortunately secondary to having chronic kidney disease and high creatinine, contrast cannot begin. Patient did drop her H&H today. Vital Signs Date Time Temp Pulse Resp B/P B/P Pulse O2 O2 Flow FiO2 Mean Ox Delivery Rate 06/07 1049 60 150/70 06/07 1049 60 150/70 06/07 0745 98.0 63 18 164/66 90 Room Air 06/06 2234 98.6 62 19 152/60 91 Room Air 06/06 2221 63 160/60 06/06 1630 98.3 62 20 150/60 92 Room Air on exam; aox3, nad. cv; s1,s2, rrr resp; clear abd; soft, nt, bs+ ext; no edema. Laboratory Tests 06/07 06/06 0705 1218 Chemistry Sodium (137 - 145 mmol/L) 138 139 Potassium (3.5 - 5.1 mmol/L) 4.8 5.0 Chloride (98 - 107 mmol/L) 104 105 Carbon Dioxide (22 - 30 mmol/L) 25 24 Anion Gap (5 - 16) 9 10 BUN (7 - 17 mg/dL) 34 H 35 H Creatinine (0.5 - 1.0 mg/dL) 1.7 H 1.7 H Estimated GFR (>60 ml/min) 29 L 29 L BUN/Creatinine Ratio (7 - 25 %) 20.0 20.6 Total Bilirubin (0.2 - 1.3 mg/dL) 0.3 Direct Bilirubin (< 0.4 mg/dL) 0.2 AST (14 - 36 U/L) 17 ALT (9 - 52 U/L) 26 Alkaline Phosphatase (<127 U/L) 57 Total Protein (6.3 - 8.2 g/dL) 5.7 L Albumin (3.5 - 5.0 g/dL) 3.0 L Hematology CBC w Diff NO MAN DIFF REQ WBC (4.8 - 10.8 /CUMM) 5.9 RBC (4.20 - 5.40 /CUMM) 2.62 L Hgb (12.0 - 16.0 G/DL) 7.2 *L Hct (37 - 47 %) 22.1 L MCV (81.0 - 99.0 FL) 84.3 MCH (27.0 - 31.0 PG) 27.6 RDW (11.5 - 14.5 %) 18.9 H Plt Count (130 - 400 /CUMM) 249 MPV (7.4 - 10.4 FL) 7.6 Gran % (42.2 - 75.2 %) 59.3 Lymphocytes % (20.5 - 51.1 %) 27.1 Monocytes % (1.7 - 9.3 %) 7.3 Eosinophils % (0 - 5 %) 6.0 H Basophils % (0.0 - 2.0 %) 0.3 Absolute Granulocytes (1.4 - 6.5 /CUMM) 3.5 Absolute Lymphocytes (1.2 - 3.4 /CUMM) 1.6 Absolute Monocytes (0.10 - 0.60 /CUMM) 0.4 Absolute Eosinophils (0.0 - 0.7 /CUMM) 0.4 Absolute Basophils (0.0 - 0.2 /CUMM) 0 PUBS MCHC (33.0 - 37.0 G/DL) 32.8 L A/P; 75 y/o F with pmh sig for diabetes, hypertension, hyperlipidemia, chronic kidney disease [follows up with Dr. Haja Mina nephrology], multiple recurrent UTI/pyelonephritis, CVA in 2013, and again in 2016 with residual left-sided weakness, and sinus bradycardia status post pacemaker placement, admitted with nausea/vomiting and diarrhea which seems to be improving. CT sacn report is not clrear about ? pancreatic head mass therefore abdominal ultrasound was ordered.US shows large mildly vascular solid mass in the gallbladder body, arising from the posterior wall, highly suspicious for a malignant neoplasm. GI and surgical consults were obtained. MRI with and without contrast has been recommended. Unfortunately secondary to chronic kidney disease and creatinine level at 1.7, gadolinium cannot be administered. This was discussed with patient and her son. Dr. López is recommending referring the patient to a Hepatobiliary surgeon at [facility] or [facility]. We will arrange a family meeting today this afternoon. We will discuss all this with the patient's family at that time. H&H dropped today. Please check stool for guaiac and transfuse 1 unit of packed RBCs. Monitor H&H. Continue PPI, other current meds. DVT Px; Hep sq. If there is any evidence of active bleed, will stop the pharmcologc DVT px. D/W pt's son over the phone. Update 1520: Family meeting today with patient's both sons. They want to pursue with patient seeing a specialist surgeon. We will provide them with the names off the hepatobiliary bed ability surgeons. No imaging will be performed at [facility]. It will be at the discretion off the hepatobiliary surgeon. Patient will likely be discharged home tomorrow if her H&H is stable and she is hemodynamically stable.
[2016-06-07 07:45] VITALS: BP 164/66
[2016-06-07 08:07] LABS: ABSOLUTE BASOPHIL COUNT 0 /CUMM (0.0-0.2); ABSOLUTE EOSINOPHIL COUNT 0.4 /CUMM (0.0-0.7); ABSOLUTE LYMPH COUNT 1.6 /CUMM (1.2-3.4); ABSOLUTE MONOCYTE COUNT 0.4 /CUMM (0.10-0.60); BASOPHIL % 0.3 % (0.0-2.0); WHITE BLOOD CELL COUNT 5.9 /CUMM (4.8-10.8)
[2016-06-07 08:33] LABS: ABSOLUTE GRANULOCYTE CT 3.5 /CUMM (1.4-6.5); GRANULOCYTE % 59.3 % (42.2-75.2); HEMATOCRIT 22.1 % (37-47); MEAN CORPUSCULAR HGB 27.6 PG (27.0-31.0); MEAN CORPUSCULAR HGB CONC 32.8 G/DL (33.0-37.0); MEAN CORPUSCULAR VOLUME 84.3 FL (81.0-99.0); MEAN PLATELET VOLUME 7.6 FL (7.4-10.4); PLATELET COUNT 249 /CUMM (130-400); RBC DISTRIBUTION WIDTH 18.9 % (11.5-14.5); RED BLOOD CELL CT 2.62 /CUMM (4.20-5.40)
--- NOTE | 2016-06-07 10:35 | Patient Discharge Instructions ---
Discharge Instructions General Discharge Information You were seen/treated for: nausea/vomiting gall bladder mass Special Instructions: Please follow up with your PCP in one week of discharge Please with hepatobiliary surgeon as outpatient for surgical evaluation to remove gallbladder as outpatient. Procedure and can be done at [place] with Dr. Steven acosta or at [facility] with Dr. Ocasio Please take medications as prescribed Diet Additional DIET Information: Please take mechanical chop diet and nectar thickened liquids Activity Additional ACTIVITY Info: As tolerated Acute Coronary Syndrome Inclusion Criteria At DC or during hospital stay patient has or had the following: ACS DIAGNOSIS No Discharge Core Measures Meds if any: Prescribed or Continued at Discharge Meds if any: NOT Prescribed or Continued at Discharge Congestive Heart Failure Inclusion Criteria At DC or during hospital stay patient has or had the following: CHF DIAGNOSIS No Discharge Core Measures Meds if any: Prescribed or Continued at Discharge Meds if any: NOT Prescribed or Continued at Discharge Cerebrovascular accident Inclusion Criteria At DC or during hospital stay patient has or had the following: CVA/TIA Diagnosis No Discharge Core Measures Meds if any: Prescribed or Continued at Discharge Meds if any: NOT Prescribed or Continued at Discharge Venous thromboembolism Inclusion Criteria VTE Diagnosis No VTE Type NONE VTE Confirmed by (Test) NONE Discharge Core Measures - Per Current guidelines, there needs to be overlap - treatment for the first 5 days of Warfarin therapy. - If discharged on Warfarin prior to 5 days of - overlap therapy, the patient will need to be - assessed for post discharge needs including - *Post discharge parental anticoagulation - *Warfarin and/or parental anticoagulation education - *Follow up date to check INR post discharge At least 5 days overlap therapy as Inpatient No Meds if any: Prescribed or Continued at Discharge Note: Overlap Therapy is Warfarin and Anticoagulant Meds if any: NOT Prescribed or Continued at Discharge
--- NOTE | 2016-06-07 13:25 | Discharge Summary ---
Visit Information Visit Dates Admission Date: 06/05/16 Discharge Date: 06/10/16 Hospital Course Course Attending Physician: ANGE OVALLES MD Primary Care Physician: HASEEB HOOKER,FLOR[place] Wallace Consulting Request: Consulting Specialty: Gastroenterology Consulting Physician: Dr. Mina Reason for Consult: gallbladder mass Hospital Course: Mrs. Snowden is a 75 year old female with significant past medical history of diabetes, hypertension, hyperlipidemia, chronic kidney disease [follows up with Dr. 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 Vitals on admission, temperature 97.5, heart rate 61, respiratory rate 18, 128/ 58, 84% on room air. Physical exam: Age-appropriate appearing female lying comfortably in bed in no acute distress. HEENT exam positive for dry/pale mucous membranes. Lung exam benign. Heart exam regular rate and rhythm without any murmurs rubs or gallops. Abdominal exam bowel sounds however patient did admit to tenderness diffusely. Lower extremity exam negative for any swelling or significant erythema. Patient was admitted to general medical floor and following issues were addressed 1 nausea/vomiting/diarrhea which was resolved after symptomatic treatment with IV hydration, antiemetics and most likely was viral gastroenteritis. Problem #2 right upper quadrant pain/tenderness Initially on admission CAT scan of abdomen was done that showed mixed attenuation in the gallbladder and also suspicion of head of pancreas which may suggest common bile duct stones and next day we did complete ultrasound of the abdomen and that revealed Large mildly vascular solid mass in the gallbladder body, arising from the posterior wall, highly suspicious for a malignant neoplasm. Her LFTs remain stable. Gastroenterology was consulted and their recommendations were to call surgery for surgery/cholecystectomy. Patient was seen by general surgery Dr. López and recommendations were to do MRI for further detailed imaging evaluation but because of her CKD with a creatinine of 1.7 and GFR low at that 29 makes her unsuitable candidate for contrast. And also cholecystectomy for gallbladder malignancy needs to be done by hepatobiliary specialist surgen available at [place] Dr. Steven Hernandez or at [facility] Dr. Ocasio. A detailed discussion was done with patient's family her both sons on phone and also had a family meeting and with mutual understanding it was decided that they will pursue surgery as outpatient with recommended hospitals/ surgeons and further imaging can also be done as outpatient. Problem 3 anemia most likely chronic with low H&H that dropped to 7.2 during second day of her admission. Patient was transfused with 1 unit of packed red cell. Problem #4 diabetes mellitus Patient was placed on Accu-Cheks and insulin sliding scale Problem #5 history of hypertension/CVA Patient was continued on all of her home medications including carvedilol amlodipine, aspirin, clopidogrel and is pravastatin Problem #6 Weakness/deconditioning * She was found to be weak most likely due to deconditioning and was seen by physical therapist and recommendations are to send patient to rehabilitation center. DNR/DNI heart healthy diet heparin for dvt ppx pain pathway Complications: None Allergies: Coded Allergies: amoxicillin (PT UNSURE 06/05/16) Significant Procedures: SERVICE DATE: 06/06/16- EXAM TYPE: US - US-COMPLETE ABDOMEN EXAMINATION: US ABDOMEN COMPLETE CLINICAL INFORMATION: Nausea, vomiting, diarrhea. Presumptive diagnosis gastroenteritis. COMPARISON: CT scan of the abdomen and pelvis dated 06/05/2016. TECHNIQUE: Real-time imaging of the abdominal viscera. FINDINGS: PANCREAS: The pancreatic body and head and portions of the tail were visualized and are unremarkable. Remainder of the pancreas is obscured by overlying bowel gas. ABDOMINAL AORTA: The proximal segment is normal in caliber. INFERIOR VENA CAVA: Visualized portions are normal. LIVER: The liver is enlarged, with the right lobe measuring at least 19 cm on ultrasound. On recent CT scan, liver length of 20.5 cm was obtained. The liver demonstrates normal contour and echogenicity. No focal lesion or intrahepatic biliary duct dilatation. GALLBLADDER: Corresponding to the CT scan findings, there is a large lobulated 5.0 x 2.8 x 4.1 cm mixed echogenicity but primarily hyperechoic mass seen arising from the posterior wall of the gallbladder body, demonstrating prominent internal vascular flow with color Doppler imaging. This is highly suspicious for a gallbladder wall neoplasm. In addition, there is echogenic shadowing layering debris seen within the gallbladder, likely representing multiple tiny gallstones/gravel. No gallbladder wall thickening, pericholecystic fluid or sonographic Mccurdy sign is elicited. COMMON BILE DUCT: Normal in caliber measuring 0.5 cm in diameter. RIGHT KIDNEY: Normal. No hydronephrosis. No renal calculi or focal parenchymal lesions. The kidney measures 9.5 cm in maximum dimension. LEFT KIDNEY: Normal. No hydronephrosis. No renal calculi or focal parenchymal lesions. The appearance on CT scan is most likely related to prominent lobulations of the renal cortex. The kidney measures 9.3 cm in maximum dimension. SPLEEN: Normal. The spleen measures 9.7 cm in maximum dimension. FREE FLUID: None. IMPRESSION: 1. Large mildly vascular solid mass in the gallbladder body, arising from the posterior wall, highly suspicious for a malignant neoplasm. By ultrasound, no definite extra cholecystic extension or involvement of the liver is seen, though evaluation is limited in this regard. No definite adenopathy is appreciated in the silas hepatis. Consider further assessment with MRI scan with and without contrast/MRCP. 2. Calcified tiny gallstones/gravel are also seen within the gallbladder. No evidence of acute cholecystitis or biliary obstruction. 3. Hepatomegaly. 4. The mild left ureteral hydronephrosis seen on CT scan is not reproduced on this exam and appears to have resolved. 5. No focal left renal mass seen. Appearance on CT scan is most likely related to prominent lobulations of the renal cortex. Disposition Summary Disposition Principal Diagnosis: Nausea vomiting and diarrhea Gallbladder mass Additional Diagnosis: Anemia Discharge Disposition: SNF Discharge Instructions General Discharge Information Code Status: Do Not Resucitate/Intubat Patient's Diet: Consistent carbohydrate diet 3 with mechanical chopped diet and regular thin liquids Patient's Activity: As tolerated with assistance Follow-Up Instructions/Appts: Please follow-up with your primary care physician in one week of discharge Please follow-up with hepatobiliary surgeon as outpatient for cholecystectomy due to gallbladder mass. He will write you regarding outpatient MRI Medications at Discharge Discharge Medications: Stop taking the following medications: Omeprazole (Omeprazole) 20 MG CAPSULE. ORAL DAILY Qty = 90 Continue taking these medications: Pantoprazole Sodium (Pantoprazole Sodium) 40 MG TABLET. 40 Milligram ORAL DAILY Qty = 90 Comments: NOT GIVEN Allopurinol (Allopurinol) 100 MG TABLET 100 Milligram ORAL DAILY Qty = 90 Comments: NOT GIVEN Levothyroxine Sodium (Levothyroxine Sodium) 112 MCG TABLET 112 Microgram ORAL DAILY Qty = 90 Comments: Last Taken: 06/10/16 Time: 0600 Amlodipine Besylate (Amlodipine Besylate) 10 MG TABLET 10 Milligram ORAL DAILY Qty = 90 Comments: Last Taken: 06/10/16 Time: 1000 Pravastatin Sodium (Pravastatin Sodium) 40 MG TABLET 40 Milligram ORAL DAILY Qty = 90 Comments: Last Taken: 06/09/16 Time: 1700 Gabapentin (Gabapentin) 100 MG CAPSULE 100 Milligram ORAL DAILY Qty = 270 Comments: Last Taken: 06/10/16 Time: 1000 Carvedilol (Carvedilol) 12.5 MG TABLET 12.5 Milligram ORAL TWICE DAILY Qty = 180 Comments: Last Taken: 06/10/16 Time: 1000 Clopidogrel Bisulfate (Clopidogrel) 75 MG TABLET 75 Milligram ORAL DAILY Qty = 90 Comments: Last Taken: 06/10/16 Time: 1000 Fluoxetine HCl (Fluoxetine HCl) 20 MG CAPSULE 20 Milligram ORAL DAILY Qty = 90 Comments: Last Taken: 06/10/16 Time: 1000 Acetaminophen With Codeine (Acetaminophen-Cod #3 Tablet) 300 MG-30 MG TABLET 300 Milligram ORAL DAILY Qty = 10 Comments: Last Taken: 06/10/16 Time: 1000 Ipratropium/Albuterol Sulfate (Iprat-Albut 0.5-3(2.5) MG/3 Ml) 0.5 MG-3 MG (2.5 MG BASE)/3 ML AMPUL.NEB 0.5 Milligram Inhale through mouth NEEDED as needed for BREATHING Comments: NOT GIVEN Mag Oxide/D3/Turmeric Rt Xt (Magnesium-Vit D3-Turmeric Cap) 500 MG-3,000 UNIT- 150 MG CAPSULE 500 Milligram ORAL DAILY Comments: NOT GIVEN Sennosides (Senna) 8.6 MG TABLET 8.6 Milligram ORAL as needed for CONSPTIPATION Comments: NOT GIVEN Aspirin (Francois Chewable Aspirin) 81 MG TAB.CHEW 81 Milligram ORAL DAILY Comments: Last Taken: 06/10/16 Time: 1000 Saccharomyces Boulardii (Florastor) 250 MG CAPSULE 250 Milligram ORAL DAILY Comments: NOT GIVEN Copies To: HASEEB HOOKER,FLORIDA Lagunas MD Review Statement Documenting Attending: ELI HOOKER,NAN
[2016-06-07 14:31] VITALS: BP 156/80
[2016-06-08 06:51] VITALS: BP 154/72
--- NOTE | 2016-06-08 07:25 | PN- Housestaff ---
NATASHA UP 06/08/16 0716: Subjective Follow-up For: Nausea vomiting and diarrhea Gallbladder mass Complaints: mild nausea Subjective: Patient was seen and examined this morning. She was lying comfortably in bed and is c/o mild nausea but she did not vomit over night. She remained afebrile and normal vital signs. She will be discharged home today and she will follow- up with outpatient hepatobiliary surgery for elective cholecystectomy . Review of Systems Constitutional: Denies: chills, diaphoresis. Cardiovascular: Denies: chest pain, edema. Respiratory: Denies: cough, hemoptysis. Gastrointestinal: Denies: bloating, constipation. Genitourinary: Denies: dysuria, frequency. Objective Last 24 Hrs of Vital Signs/I&O Vital Signs Date Time Temp Pulse Resp B/P B/P Pulse O2 O2 Flow FiO2 Mean Ox Delivery Rate 06/08 0651 97.7 51 20 154/72 94 Room Air 06/07 2235 97.7 63 20 94 Room Air 06/07 2127 63 152/70 06/07 1431 98.0 59 20 156/80 94 Room Air 06/07 1049 60 150/70 06/07 1049 60 150/70 06/07 0745 98.0 63 18 164/66 90 Room Air Intake & Output 06/08 0800 06/08 0000 06/07 1600 Intake Total 1100 550 Output Total 1500 400 350 Balance -1500 700 200 Intake, Blood 350 Product Intake, IV 30 Intake, Oral 720 550 Output, Urine 1500 400 350 Patient 169 lb Weight Physical Exam General Appearance: Alert, Oriented X3, Cooperative Cardiovascular: Normal S1, Normal S2, No Murmurs Lungs: Normal Air Movement Abdomen: Soft, mild right upper quadrant tenderness Current Medications: Current Medications Sig/Lakshmi Start time Last Medication Dose Route Stop Time Status Admin Acetaminophen 650 MG Q6P PRN 06/06 0200 AC PO Acetaminophen 1,000 MG Q6P PRN 06/06 0200 AC IV Amlodipine Besylate 10 MG DAILY 06/06 1000 AC 06/07 PO 1049 Aspirin 81 MG DAILY 06/06 1000 AC 06/07 PO 104 Carvedilol 12.5 MG BID 06/06 1000 AC 06/07 PO 2126 Clopidogrel Bisulfate 75 MG DAILY 06/06 1000 AC 06/07 PO 104 Fluoxetine HCl 20 MG DAILY 06/06 1000 AC 06/07 PO 1047 Gabapentin 100 MG DAILY 06/06 1000 AC 06/07 PO 1047 Heparin Sodium 5,000 UNIT Q8 06/06 0600 AC 06/08 (Porcine) SC 0648 Insulin Aspart 0 TIDAC 06/06 0800 AC 06/07 SC 1657 Levothyroxine Sodium 0.112 MG DAILY AC 06/06 0700 AC 06/08 PO 0649 Magnesium Oxide 400 MG DAILY 06/06 1000 AC 06/07 PO 1047 Omeprazole 20 MG DAILY AC 06/06 0700 AC 06/08 PO 0648 Ondansetron HCl 4 MG Q6P PRN 06/06 0200 AC 06/08 IV 0605 Oxycodone/ 1 TAB Q6P PRN 06/06 0200 AC 06/07 Acetaminophen PO 0604 Pravastatin Sodium 40 MG 1700 06/06 1700 AC 06/07 PO 1657 Senna/Docusate Sodium 2 TAB DAILY NEEDED PRN 06/06 0145 AC PO Last 24 Hrs of Lab/Yony Results Last 24 Hrs of Labs/Mics: Laboratory Tests 06/08/16 0635: Sodium Pending, Potassium Pending, Chloride Pending, Carbon Dioxide Pending, Anion Gap Pending, BUN Pending, Creatinine Pending, BUN/Creatinine Ratio Pending , Total Bilirubin Pending, Direct Bilirubin Pending, AST Pending, ALT Pending, Alkaline Phosphatase Pending, Total Protein Pending, Albumin Pending, CBC w Diff Pending, WBC Pending, RBC Pending, Hgb Pending, Hct Pending, MCV Pending, MCH Pending, RDW Pending, Plt Count Pending, MPV Pending, PUBS MCHC Pending Assessment/Plan Assessment: Mrs. Snowden is a 75 year old female with significant past medical history of diabetes, hypertension, hyperlipidemia, chronic kidney disease [follows up with Dr. 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 Significant labs on admission, H&H 8.6/26, white blood cell count 10.5, platelets 307. BUNs/creatinine 36/1.6, blood sugar 150. Urinalysis showed 1+ proteinuria with 5-[address] showed several subtle findings including mixed attenuation in the gallbladder and findings in the head of the pancreas which may suggest common duct stones, as well as a prominent left ureter which may be lead up to a very small 2 mm calculus at the UVJ. There is also some mild fullness of left collecting system. Problem List/Assessment and Plan Nausea/vomitting/diarrhea * Admit the patient to for rehydration with IV fluids and anti-emetics * We'll continue normal saline at 75 mL per hour 2 bags and 4 mg of IV Zofran every 4-6 hours as needed * Nausea, vomiting and abdominal pain associated with diarrhea most likely gastro-enteritis viral in origin which is resolved now. She is slightly nauseated this morning , we will ngive entiemetic and will observe if she is toleraing food and will decide if she is ok to be discharge today. * On abdominal ultrasound showed large lobulated 5.0 x 2.18x4.1 cm mixed echogenicity but primarily hyperechoic Mac was seen that was arising from posterior wall of gallbladder. Which was highly suspicious for malignancy/ neoplasm. Gastroenterology and surgery was consulted for evaluating patient for cholecystectomy. Patient was seen by Dr. Mina and Dr. López yesterday. Recommendations were to get MRI done. I spoke with IR Dr. Damon yesterday but due to her CK D with creatinine of 1.7 and GFR of 29 it's not safe to give patient contrast to compromise her kidneys but it all depends on how important it test is an family meeting was held yesterday with 2 sons were present a detailed discussion was done and family was agreed to pursue her surgery as outpatient with hepatobiliary surgeon either at [facility] with Dr. Steven acosta or at [facility] with Dr. Ocasio HTN/CVA * continue home meds, carvedilol 12.5 mg twice a day, amlodipine 10mg daily, aspirin 81 mg, clopidogrel 75 mg, and pravastatin 40 daily. DM * Patient is not on any antidiabetic medication however we will place her on a NovoLog sliding scale and check fingersticks 3 times a day before meals and at bedtime CKD * BUNs/creatinine 36/1.6. We do not have a baseline BUN/creatinine however we will recheck BUN/creatinine after hydration tomorrow. Per the son the patient does have chronic kidney disease with approximately 25% renal function. * I called her PCP Dr. Jose MEMBRENO ask about patient's previous creatinine and he told me that the last BEP from May showed that her creatinine was 2.2, BUNs 34, GFR 23. Her hemoglobin A1c was 6.2. Patient had a recent ultrasound that was especially for kidney/neurogenic bladder and gallbladder sludge was noted. Anemia most likely due to anemia chronic disease * on patient patient's hemoglobin was 8.6 that dropped to 7.2 next day. Patient was transfused with 1 unit of packed red cells. Stool guaiac was ordered but patient didn't have any bowel movement after initial 3 bowel movements on the night of her admission. We will give patient MiraLAX and guaiac her stool before discharging. Hypothyroidism * Continue synthroid 112 mcg daily. DNR/DNI heart healthy diet heparin for dvt ppx pain pathway Problem List: 1. Abdominal pain Pain Ratin Pain Location: Not applicable Pain Goal: Remain pain free Pain Plan: Tylenol Tomorrow's Labs & Rationales: None Consulting Request: Consulting Specialty: Gastroenterology Consulting Physician: Dr. Mina Reason for Consult: gallbladder mass SARANYA URBAN MD 06/08/16 1011: Attending MD Review Statement Attending Statement Attending MD Statement: examined this patient, discuss w/resident/PA/TITLE INSURANCE AGENT, agreed w/resident/PA/TITLE INSURANCE AGENT, reviewed EMR data (avail), discussed with nursing, discussed with case mgmt Attending Assessment/Plan: Patient seen and examined. Also read at length notes of a family meeting. Patient is going to eat breakfast today. If she tolerates breakfast fine then she is going to be discharged. Her hemoglobin is stable at 9 and she has CKD with a stable BUN of 30 and creatinine 1.5. She has multiple medical problems and right now what appears to be the issue is this gallbladder mass that's likely a malignancy that needs further imaging and referral to a hepatobiliary surgeon. As per the family meeting held yesterday, all of this will be done as an outpatient. If she tolerates her diet then she will leave with outpatient follow-up. The CMR and discharge medications have already been reconciled by Dr. Chopra, the primary attending of record.
[2016-06-08 08:07] LABS: ABSOLUTE BASOPHIL COUNT 0 /CUMM (0.0-0.2); ABSOLUTE EOSINOPHIL COUNT 0.5 /CUMM (0.0-0.7); ABSOLUTE GRANULOCYTE CT 4.8 /CUMM (1.4-6.5); ABSOLUTE LYMPH COUNT 1.7 /CUMM (1.2-3.4); ABSOLUTE MONOCYTE COUNT 0.6 /CUMM (0.10-0.60); BASOPHIL % 0.4 % (0.0-2.0); EOSINOPHIL % 6.6 % (0-5); GRANULOCYTE % 62.3 % (42.2-75.2); MEAN CORPUSCULAR HGB 27.9 PG (27.0-31.0); MEAN CORPUSCULAR HGB CONC 33.4 G/DL (33.0-37.0); MEAN CORPUSCULAR VOLUME 83.6 FL (81.0-99.0); MEAN PLATELET VOLUME 7.4 FL (7.4-10.4); PLATELET COUNT 273 /CUMM (130-400); RBC DISTRIBUTION WIDTH 17.9 % (11.5-14.5); WHITE BLOOD CELL COUNT 7.7 /CUMM (4.8-10.8)
[2016-06-08 08:58] LABS: HEMATOCRIT 28.6 % (37-47); RED BLOOD CELL CT 3.42 /CUMM (4.20-5.40)
[2016-06-08 14:21] VITALS: BP 140/80
[2016-06-08 22:21] VITALS: BP 138/70
[2016-06-09 07:46] VITALS: BP 166/70
--- NOTE | 2016-06-09 08:13 | PN- Housestaff ---
KINGA HOOKER,ALOK 06/09/16 0813: Subjective Follow-up For: Nausea vomiting and diarrhea Gallbladder mass Subjective: Patient seen and examined. She is seen sitting upright in her chair at bedside resting comfortably. She appears to be in no acute distress. She is complaining of mild nausea and abdominal discomfort; for these reasons she is refusing to take any of her oral medications. However she reports she did eat most of her breakfast. She slept well last night and otherwise offers no new subjective complaints. Additionally she denies any fever, chills, chest pain, shortness of breath, nausea, vomiting, diarrhea. No overnight events reported. Review of Systems Constitutional: Reports: see HPI. Objective Last 24 Hrs of Vital Signs/I&O Vital Signs Date Time Temp Pulse Resp B/P B/P Pulse O2 O2 Flow FiO2 Mean Ox Delivery Rate 06/09 1425 98.2 80 20 120/80 98 06/09 0746 98.7 67 20 166/70 95 Room Air 06/08 2221 98.6 65 18 138/70 95 Room Air 06/08 2040 65 138/70 Intake & Output 06/09 1600 06/09 0800 06/09 0000 Intake Total 550 30 700 Output Total 300 200 500 Balance 250 -170 200 Intake, IV 0 Intake, Oral 550 30 700 Number 1 0 1 Bowel Movements Output, Urine 300 200 500 Physical Exam General Appearance: Alert, Oriented X3, Cooperative, No Acute Distress Other Physical Findings: General- well developed, well nourished obese elderly woman in no acute distress HEENT- NCAT, PERRL, EOMI, anicteric sclera, obvious left sided facial droop CVS- S1, S2 w/o m/g/r Resp- CTA bilaterally GI- Soft, obese, nontender, nondistended, bowel sounds intact Neuro- Awake, alert, obvious slurred speech, CN II-XII grossly intact Ext- normal pulses, no cyanosis/clubbing/edema Current Medications: Current Medications Sig/Lakshmi Start time Last Medication Dose Route Stop Time Status Admin Acetaminophen 650 MG Q6P PRN 06/06 0200 AC PO Acetaminophen 1,000 MG Q6P PRN 06/06 0200 AC IV Amlodipine Besylate 10 MG DAILY 06/06 1000 AC 06/08 PO 0936 Aspirin 81 MG DAILY 06/06 1000 AC 06/08 PO 0933 Bisacodyl 10 MG ONCE ONE 06/09 1045 DC 06/09 MT 06/09 1046 1241 Carvedilol 12.5 MG BID 06/06 1000 AC 06/08 PO 2040 Clopidogrel Bisulfate 75 MG DAILY 06/06 1000 AC 06/08 PO 0936 Fluoxetine HCl 20 MG DAILY 06/06 1000 AC 06/08 PO 0936 Gabapentin 100 MG DAILY 06/06 1000 AC 06/08 PO 0936 Heparin Sodium 5,000 UNIT Q8 06/06 0600 AC 06/09 (Porcine) SC 1457 Insulin Aspart 0 TIDAC 06/06 0800 AC 06/09 SC 1659 Levothyroxine Sodium 0.112 MG DAILY AC 06/06 0700 AC 06/09 PO 0614 Magnesium Oxide 400 MG DAILY 06/06 1000 AC 06/08 PO 0933 Omeprazole 20 MG DAILY AC 06/06 0700 AC 06/09 PO 0614 Ondansetron HCl 4 MG Q6P PRN 06/06 0200 AC 06/09 IV 0740 Oxycodone/ 1 TAB Q6P PRN 06/06 0200 AC 06/07 Acetaminophen PO 0604 Polyethylene Glycol 17 GM DAILY 06/08 1000 AC 06/08 PO 0939 Pravastatin Sodium 40 MG 1700 06/06 1700 AC 06/09 PO 1659 Senna/Docusate Sodium 2 TAB DAILY NEEDED PRN 06/06 0145 AC PO Assessment/Plan Assessment: Patient continues to express abdominal discomfort with associated nausea. She otherwise feels fine and has no new subjective complaints. She is to be discharged to [facility] and to follow up with a hepatobiliary surgeon at [facility] with outpatient follow up in the near future. 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 Nausea and vomiting Pain Ratin Pain Location: Abdomen Pain Goal: Pain 7 or less Pain Plan: See assessment Tomorrow's Labs & Rationales: CBC/BEP Consulting Request: Consulting Specialty: Gastroenterology Consulting Physician: Dr. Mina Reason for Consult: gallbladder mass RAJNI HOOKER,SARANYA 06/09/16 1138: Attending MD Review Statement Attending Statement Attending MD Statement: examined this patient, discuss w/resident/PA/PHOTOGRAPHIC SPOTTER, agreed w/resident/PA/PHOTOGRAPHIC SPOTTER, reviewed EMR data (avail), discussed with nursing, discussed with case mgmt Attending Assessment/Plan: Events yesterday noted. Patient was weak and when she worked with PT they are recommending STR. Family would like her to go back to [facility]. She is intermittently nauseous and eats half to one third of her meals. She is a 75 -year-old with multiple medical problems including a stroke with residual weakness is here with what is presumed to be a gallbladder mass/neoplasm that needs further imaging and workup. Per family meeting held with the primary attending the patient is going to see a hepatobiliary surgeon in [place] with further imaging done there. The plan was to discharge her home yesterday with a 24-hour caregiver and the sons were going to set up this follow-up but now the plan will be STR and outpatient follow-up from there.
--- NOTE | 2016-06-09 10:34 | NUR ---
PT C/O INTERMITTEN NAUSEA, PT ATE 1/2 OF BREAKFAST, PT REFUSING PO MEDS. AWARE, CONTINUE TO MONITOR, PT HAS ZOFRAN EARLIER THIS AM , SEE MAR
[2016-06-09 14:25] VITALS: BP 120/80
[2016-06-09 22:44] VITALS: BP 160/70
--- NOTE | 2016-06-10 07:25 | PN- Housestaff ---
NATASHA UP 06/10/16 0724: Subjective Follow-up For: Nausea vomiting and diarrhea Gallbladder mass Complaints: no complaints Subjective: Patient was seen and examined this morning. She was lying comfortably in bed. She was slightly nauseous yesterday and was not able to eat properly. She didn' t get her breakfast yet and we will watch how she will do today. She was seen by physical therapy and recommendations are to send her to short-term rehabilitation. Her H&H remained stable and she remained afebrile. Review of Systems Constitutional: Denies: chills, diaphoresis. EENTM: Denies: blurred vision, double vision. Cardiovascular: Denies: chest pain, edema. Respiratory: Denies: cough, hemoptysis. Gastrointestinal: Reports: nausea. Genitourinary: Denies: frequency, hematuria. Musculoskeletal: Reports: see HPI. Objective Last 24 Hrs of Vital Signs/I&O Vital Signs Date Time Temp Pulse Resp B/P B/P Pulse O2 O2 Flow FiO2 Mean Ox Delivery Rate 06/10 0739 98.1 61 20 130/80 95 Room Air 06/09 2244 98.3 61 20 160/70 93 06/09 2207 61 160/70 06/09 1425 98.2 80 20 120/80 98 Intake & Output 06/10 0800 06/10 0000 06/09 1600 Intake Total 50 550 Output Total 200 300 Balance -150 250 Intake, Oral 50 550 Number 1 1 Bowel Movements Output, Urine 200 300 Physical Exam General Appearance: Alert, Oriented X3, Cooperative, No Acute Distress Skin: No Breakdown Cardiovascular: Regular Rate, Normal S1, Normal S2, No Murmurs Lungs: Normal Air Movement Abdomen: Soft Extremities: No Clubbing, No Cyanosis Current Medications: Current Medications Sig/Lakshmi Start time Last Medication Dose Route Stop Time Status Admin Acetaminophen 650 MG Q6P PRN 06/06 0200 AC PO Acetaminophen 1,000 MG Q6P PRN 06/06 0200 AC IV Amlodipine Besylate 10 MG DAILY 06/06 1000 AC 06/08 PO 0936 Aspirin 81 MG DAILY 06/06 1000 AC 06/08 PO 0933 Bisacodyl 10 MG ONCE ONE 06/09 1045 DC 06/09 MD 06/09 1046 1241 Carvedilol 12.5 MG BID 06/06 1000 AC 06/09 PO 2207 Clopidogrel Bisulfate 75 MG DAILY 06/06 1000 AC 06/08 PO 0936 Fluoxetine HCl 20 MG DAILY 06/06 1000 AC 06/08 PO 0936 Gabapentin 100 MG DAILY 06/06 1000 AC 06/08 PO 0936 Heparin Sodium 5,000 UNIT Q8 06/06 0600 AC 06/10 (Porcine) SC 0552 Insulin Aspart 0 TIDAC 06/06 0800 AC 06/09 SC 1659 Levothyroxine Sodium 0.112 MG DAILY AC 06/06 0700 AC 06/10 PO 0554 Magnesium Oxide 400 MG DAILY 06/06 1000 AC 06/08 PO 0933 Omeprazole 20 MG DAILY AC 06/06 0700 AC 06/10 PO 0554 Ondansetron HCl 4 MG Q6P PRN 06/06 0200 AC 06/09 IV 0740 Oxycodone/ 1 TAB Q6P PRN 06/06 0200 AC 06/07 Acetaminophen PO 0604 Polyethylene Glycol 17 GM DAILY 06/08 1000 AC 06/08 PO 0939 Pravastatin Sodium 40 MG 1700 06/06 1700 AC 06/09 PO 1659 Senna/Docusate Sodium 2 TAB DAILY NEEDED PRN 06/06 0145 AC PO Last 24 Hrs of Lab/Yony Results Last 24 Hrs of Labs/Mics: Laboratory Tests 06/10/16 0639: Sodium Pending, Potassium Pending, Chloride Pending, Carbon Dioxide Pending, Anion Gap Pending, BUN Pending, Creatinine Pending, BUN/Creatinine Ratio Pending , CBC w Diff Pending, WBC Pending, RBC Pending, Hgb Pending, Hct Pending, MCV Pending, MCH Pending, RDW Pending, Plt Count Pending, MPV Pending, PUBS MCHC Pending Assessment/Plan Assessment: Mrs. Snowden is a 75 year old female with significant past medical history of diabetes, hypertension, hyperlipidemia, chronic kidney disease [follows up with Dr. 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 Significant labs on admission, H&H 8.6/26, white blood cell count 10.5, platelets 307. BUNs/creatinine 36/1.6, blood sugar 150. Urinalysis showed 1+ proteinuria with 5-[address] showed several subtle findings including mixed attenuation in the gallbladder and findings in the head of the pancreas which may suggest common duct stones, as well as a prominent left ureter which may be lead up to a very small 2 mm calculus at the UVJ. There is also some mild fullness of left collecting system. Problem List/Assessment and Plan Nausea/vomitting/diarrhea * Admit the patient to for rehydration with IV fluids and anti-emetics * We'll continue normal saline at 75 mL per hour 2 bags and 4 mg of IV Zofran every 4-6 hours as needed * Nausea, vomiting and abdominal pain associated with diarrhea most likely gastro-enteritis viral in origin which is resolved now. She is slightly nauseated this morning , we will ngive entiemetic and will observe if she is toleraing food and will decide if she is ok to be discharge today. * On abdominal ultrasound showed large lobulated 5.0 x 2.18x4.1 cm mixed echogenicity but primarily hyperechoic Mac was seen that was arising from posterior wall of gallbladder. Which was highly suspicious for malignancy/ neoplasm. Gastroenterology and surgery was consulted for evaluating patient for cholecystectomy. Patient was seen by Dr. Mina and Dr. López yesterday. Recommendations were to get MRI done. I spoke with IR Dr. Damon yesterday but due to her CK D with creatinine of 1.7 and GFR of 29 it's not safe to give patient contrast to compromise her kidneys but it all depends on how important it test is an family meeting was held yesterday with 2 sons were present a detailed discussion was done and family was agreed to pursue her surgery as outpatient with hepatobiliary surgeon either at [facility] with Dr. Steven acosta or at [facility] with Dr. Ocasio. HTN/CVA * continue home meds, carvedilol 12.5 mg twice a day, amlodipine 10mg daily, aspirin 81 mg, clopidogrel 75 mg, and pravastatin 40 daily. DM * Patient is not on any antidiabetic medication however we will place her on a NovoLog sliding scale and check fingersticks 3 times a day before meals and at bedtime CKD * BUNs/creatinine 36/1.6. We do not have a baseline BUN/creatinine however we will recheck BUN/creatinine after hydration tomorrow. Per the son the patient does have chronic kidney disease with approximately 25% renal function. * I called her PCP Dr. Jose MEMBRENO ask about patient's previous creatinine and he told me that the last BEP from May showed that her creatinine was 2.2, BUNs 34, GFR 23. Her hemoglobin A1c was 6.2. Patient had a recent ultrasound that was especially for kidney/neurogenic bladder and gallbladder sludge was noted. Anemia most likely due to anemia chronic disease * on patient patient's hemoglobin was 8.6 that dropped to 7.2 next day. Patient was transfused with 1 unit of packed red cells. Posttransfusion H&H was 9.5 and it remained stable. Hypothyroidism * Continue synthroid 112 mcg daily. Weakness/deconditioning * She was found to be weak most likely due to deconditioning and was seen by physical therapist and recommendations are to send patient to rehabilitation center. Patient will go to rehabilitation today. DNR/DNI heart healthy diet heparin for dvt ppx pain pathway Problem List: 1. Nausea and vomiting 2. Abdominal pain Pain Ratin Pain Location: Not applicable Pain Goal: Remain pain free Pain Plan: Tylenol Tomorrow's Labs & Rationales: None Consulting Request: Consulting Specialty: Gastroenterology Consulting Physician: Dr. Mina Reason for Consult: gallbladder mass BETH BUSTILLOS MD 06/10/16 1030: Attending MD Review Statement Attending Statement Attending MD Statement: examined this patient, discuss w/resident/PA/POWER TRANSFORMER REPAIR SUPERVISOR, agreed w/resident/PA/POWER TRANSFORMER REPAIR SUPERVISOR, reviewed EMR data (avail)
[2016-06-10 07:39] VITALS: BP 130/80
[2016-06-10 08:20] LABS: ABSOLUTE BASOPHIL COUNT 0 /CUMM (0.0-0.2); ABSOLUTE EOSINOPHIL COUNT 0.4 /CUMM (0.0-0.7); ABSOLUTE GRANULOCYTE CT 3.6 /CUMM (1.4-6.5); ABSOLUTE LYMPH COUNT 1.6 /CUMM (1.2-3.4); ABSOLUTE MONOCYTE COUNT 0.5 /CUMM (0.10-0.60); BASOPHIL % 0.6 % (0.0-2.0); EOSINOPHIL % 6.2 % (0-5); GRANULOCYTE % 58.5 % (42.2-75.2); HEMATOCRIT 28.6 % (37-47); MEAN CORPUSCULAR HGB 28.1 PG (27.0-31.0); MEAN CORPUSCULAR VOLUME 84.9 FL (81.0-99.0); MEAN PLATELET VOLUME 7.5 FL (7.4-10.4); PLATELET COUNT 247 /CUMM (130-400); RBC DISTRIBUTION WIDTH 17.3 % (11.5-14.5); RED BLOOD CELL CT 3.37 /CUMM (4.20-5.40); WHITE BLOOD CELL COUNT 6.1 /CUMM (4.8-10.8)
[2016-06-10 14:14] VITALS: BP 120/68
--- NOTE | 2016-06-10 14:34 | NUR ---
SPEECH THERAPY: PER RN, PT ABLE TO CONSUME ALL OF BREAKFAST W/ NO COUGHING/DIFFICULTY. RN STATES PT HAS PENDING D/C ORDER IN SYSTEM. REC PT CONTINUE W/ CURRENT DIET ([facility] SOFT/GROUND AND THIN LIQUIDS). ST CONTINUE TO FOLLOW CLINICALLY INDICATED.
[2016-06-10 14:56] VITALS: BP 136/60
== END 2016-06-10 17:50 | DRG 392 ==
LOC: DELPENDDIS → ERH 19:21 → 2NA 23:26 → ERHI 23:26 → CANRESERV 06-06 00:45 → ENRESERV 06-06 00:45 → ERHI 06-06 14:04 → 2NA 06-06 16:14 → ENPENDDIS 06-08 11:13 → 2NA 06-10 17:50
PROVIDERS: Emergency Medicine; Internal Medicine; Internal Medicine Cardiovascular Disease; Internal Medicine Interventional Cardiology; ADMIT Student in an Organized Health Care Education/Training Program
PROC: 30233N1 Transfusion of Nonautologous Red Blood Cells into Peripheral Vein, Percutaneous Approach (ICD-10-PCS; principal; 2016-06-07)
DX: A08.4 Viral intestinal infection, unspecified (principal); I69.354 Hemiplegia and hemiparesis following cerebral infarction affecting left non-dominant side; E11.9 Type 2 diabetes mellitus without complications; E66.01 Morbid (severe) obesity due to excess calories; I12.9 Hypertensive chronic kidney disease with stage 1 through stage 4 chronic kidney disease, or unspecified chronic kidney disease; D53.9 Nutritional anemia, unspecified; N18.9 Chronic kidney disease, unspecified; Z79.84 Long term (current) use of oral hypoglycemic drugs; E78.5 Hyperlipidemia, unspecified; E03.9 Hypothyroidism, unspecified; Z68.29 Body mass index [BMI] 29.0-29.9, adult; Z95.0 Presence of cardiac pacemaker; Z87.891 Personal history of nicotine dependence; K82.8 Other specified diseases of gallbladder; Z66 Do not resuscitate
CPT/HCPCS: 2NAP; ERO; 74176; 81001; 82436; 86920; 87040; 87045; 87086; 93005; 93010; 96361; 96374; 96375; 97162-GP; 97530-GO; J1644; J2405; J2550; J2765; J3490; J7040; P9016